=== PATIENT | male | born 1940 | race Caucasian/White ===

== ENCOUNTER → 2016-05-03 | Outpatient (CLI) | payer MEDICARE ==
--- NOTE | 2016-05-03 08:27 | CT ---
EXAMINATION TYPE: CT shoulder LT wo con DATE OF EXAM: 05/03/2016 8:16 AM COMPARISON: NONE HISTORY: Shoulder pain Unenhanced CT of the left shoulder with reconstruction imaging. TECHNIQUE: Unenhanced CT of the left shoulder was performed with bone and soft tissue window settings submitted in the axial coronal and sagittal planes. At a separate workstation [id number] TR imaging was ob tained. FINDINGS: I do not see evidence for fracture or dislocation. No evidence for subacromial impingement as there is a flat acromium. AC joint arthropathy with mild spurring and a vacuum changes seen. Sev ere spur formation is noted about the humeral head particularly along the lesser tuberosity. There is severe narrowing of the glenohumeral joint space. No obvious rotator cuff abnormality seen on CT. M RI is much more sensitive and specific to rotator cuff pathology. No soft tissue masses appreciated. Visualized portions of the right lung demonstrate left apical scarring. IMPRESSION: 1. 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
== END | disposition home or self-care (01) ==
LOC: RADCTMAIN 07:49
PROVIDERS: ATTEND Orthopaedic Surgery
DX: M19.012 Primary osteoarthritis, left shoulder (principal)

== ENCOUNTER 2017-10-14 21:21 | Inpatient (IN) | payer MEDICARE ==
[2017-10-14] MEDS ORDERED: SODIUM CHLORIDE 0.9% 1,000 ML IV STA (21:44)
[2017-10-14 21:51] LABS: Basophils % (A) 0 %; Eosinophils # (A) 0.3 k/uL (0-0.7); Eosinophils % (A) 3 %; HCT 38.9 % (39.0-53.0); HGB 13.2 gm/dL (13.0-17.5); Lymphocytes % (A) 24 %; MCH 32.1 pg (25.0-35.0); MCHC 33.9 g/dL (31.0-37.0); MCV 94.5 fL (80.0-100.0); Mean Platelet Volume 7.1; Monocytes # (A) 0.5 k/uL (0-1.0); Monocytes % (A) 7 %; Neutrophils # (A) 5.2 k/uL (1.3-7.7); Neutrophils % (A) 62 %; Platelet Count 209 k/uL (150-450); RBC 4.12 m/uL (4.30-5.90); RDW 13.2 % (11.5-15.5); WBC 8.3 k/uL (3.8-10.6)
[2017-10-14 22:00] LABS: Partial Thromboplastin Time 25.1 sec (22.0-30.0); Prothrombin Time 10.2 sec (9.0-12.0)
[2017-10-14 22:03] LABS: Albumin 3.9 g/dL (3.5-5.0); Calcium 9.6 mg/dL (8.4-10.2); Magnesium 2.3 mg/dL (1.6-2.3); Potassium 3.6 mmol/L (3.5-5.1); Total Bilirubin 0.5 mg/dL (0.2-1.3); Total Protein 6.2 g/dL (6.3-8.2)
--- NOTE | 2017-10-14 22:07 | XR ---
EXAMINATION TYPE: XR chest 2V DATE OF EXAM: 10/14/2017 COMPARISON: 12/26/2013 HISTORY: Dysrhythmia TECHNIQUE: Frontal and lateral views of the chest are obtained. FINDINGS: There is mild coarsening of interstitial pulmonary markings. Heart size is normal. There a re sternal wires. There is no pleural effusion. Bony thorax is intact. IMPRESSION: Mild pulmonary fibrosis. No active cardiopulmonary disease. No change.
[2017-10-14 22:24] LABS: Creatine Kinase MB 3.6 ng/mL (0.0-2.4); Troponin I 0.14 ng/mL (0.000-0.034)
--- NOTE | 2017-10-14 23:04 | ED ---
Arrhythmia/Palpitations HPI - General Chief Complaint: Arrhythmia/Palpitations Stated Complaint: A FIB Time Seen by Provider: 10/14/17 21:30 Source: patient Mode of arrival: wheelchair Limitations: no limitations - History of Present Illness Initial Comments: 76 years old male comes in with a palpitation he said he has a palpitation for several hours today. He has a history of atrial fibrillation for last 10 years he has been on aliquots and he said he has been very compliant with his Alaquis. He denies any headaches no neck stiffness no shortness of breath no chest pain just palpitation or abdominal pain no frequency urgency dysuria no symptoms of TIA or CVA - Related Data Home Medications Medication Instructions Recorded Confirmed Amiodarone HCl [Cordarone] 100 mg PO DAILY@0530,1600 05/27/15 07/06/15 Ascorbic Acid [Vitamin C] 500 mg PO DAILY 05/27/15 07/06/15 Aspirin EC [Ecotrin] 81 mg PO DAILY@0530 05/27/15 07/06/15 Atorvastatin [Lipitor] 40 mg PO DAILY@159905/27/15 07/06/15 Cholecalciferol [Vitamin D3] 1,000 unit PO DAILY 05/27/15 07/06/15 Clopidogrel [Plavix] 75 mg PO DAILY@1600 05/27/15 07/06/15 Furosemide [Lasix] 20 mg PO DAILY@0530,1600 05/27/15 07/06/15 Isosorbide Mononitrate [Isosorbide 30 mg PO DAILY@1600 05/27/15 07/06/15 Mononitrate ER] Lisinopril-Hctz 20-25 mg 1 tab PO DAILY@30 05/27/15 07/06/15 [Zestoretic 20-25] Occuvite With Lutein 1 tab PO DAILY 05/27/15 07/06/15 [place] Oil 400 mg PO DAILY 05/27/15 07/06/15 amLODIPine [Norvasc] 5 mg PO DAILY@0530,1600 05/27/15 07/06/15 glyBURIDE,MICRONIZED [Glyburide 6 mg PO DAILY@0530,1600 05/27/15 07/06/15 Micronized] Allergies Allergy/AdvReac Type Severity Reaction Status Date / Time No Known Allergies Allergy Verified 10/14/17 21:29 Review of Systems ROS Statement: Those systems with pertinent positive or pertinent negative responses have been documented in the HPI. ROS Other: All systems not noted in ROS Statement are negative. Past Medical History Past Medical History: Atrial Fibrillation, Coronary Artery Disease (CAD), Eye Disorder, Hyperlipidemia, Hypertension, Myocardial Infarction ([place]) Additional Past Medical History / Comment(s): HX OF ANEMIA. , HAS SWELLING LEFT LEG., BRUISES ON HANDS., cataracts Last Myocardial Infarction Date:: JANUARY 1999 History of Any Multi-Drug Resistant Organisms: None Reported Past Surgical History: Coronary Bypass/CABG, Heart Catheterization With Stent, Tonsillectomy Additional Past Surgical History / Comment(s): CABG (1998) AND 4 STENTS SINCE . , ABDOMINAL SURGERY (THEY THOUGHT HE MIGHT HAVE CANCER BUT STATES NONE FOUND) RT EYE CATARACT REMOVED Past Anesthesia/Blood Transfusion Reactions: No Reported Reaction Date of Last Stent Placement:: 12/2013 Past Psychological History: No Psychological Hx Reported Smoking Status: Former smoker Past Alcohol Use History: None Reported Past Drug Use History: None Reported - Past Family History Mother Family Medical History: No Reported History General Exam - General Exam Comments Initial Comments: General: The patient is awake and alert, in no distress, and does not appear acutely ill. Skin: Skin is warm and dry and no rashes or lesions are noted. Eye: Pupils are equal, round and reactive to light, extra-ocular movements are intact; there is normal conjunctiva bilaterally. Ears, nose, mouth and throat: There are moist mucous membranes and no oral lesions. Neck: The neck is supple, there is no tenderness or JVD. Cardiovascular: Noticed atrial fibrillation Respiratory: To auscultation bilateral, no wheezing no rhonchi no distress respiratory jones noticed Gastrointestinal: Soft, non-distended, non-tender abdomen without masses or organomegaly noted. There is no rebound or guarding present. Bowel sounds are unremarkable. Back: There is no tenderness to palpation in the midline. There is no obvious deformity. Musculoskeletal: Normal ROM, no tenderness, There is no pedal edema. There is no calf tenderness or swelling. No cords were appreciated. Neurological: CN II-XII intact, Cranial nerves III through XII are intact. There are no obvious motor or sensory deficits. Coordination appears grossly intact. Speech is normal. Psychiatric: Cooperative, appropriate mood & affect, normal judgment. Limitations: no limitations Course Vital Signs 10/14/17 10/14/17 10/14/17 21:27 21:43 22:10 Temperature 97.9 F Pulse Rate 122 H 93 100 Respiratory 18 16 18 Rate Blood Pressure 102/69 124/59 118/82 O2 Sat by Pulse 98 98 98 Oximetry 10/14/17 23:13 Temperature Pulse Rate 91 Respiratory 16 Rate Blood Pressure 102/62 O2 Sat by Pulse 98 Oximetry (Reassessment noticed CBC, INR are unremarkable creatinine is 1.60 troponin is 0.140 chest x-rays unremarkable him a chest x-rays unremarkable considering patient has a history of firm CABG and atrial fibrillation and his age now ER to be admitted under Dr. Grigsby service and cardiology consult was discussed with the patient and Dr. Grigsby both agree with my plan. During his stay in the ER his heart rate stayed around 100 without any intervention. EKG Findings - EKG Comments: EKG Findings:: EKG is atrial fibrillation with rapid ventricular response heart rate is 150 QRS duration is 148 QT/QTC 328/433 noticed left bundle branch block and right axis deviation Medical Decision Making - Lab Data Result diagrams: 10/14/17 21:38 10/14/17 21:38 Lab Results 10/14/17 10/14/17 10/14/17 Range/Units 21:38 21:38 21:38 WBC 8.3 (3.8-10.6) k/uL RBC 4.12 L (4.30-5.90) m/uL Hgb 13.2 (13.0-17.5) gm/dL Hct 38.9 L (39.0-53.0) % MCV 94.5 (80.0-100.0) fL MCH 32.1 (25.0-35.0) pg MCHC 33.9 (31.0-37.0) g/dL RDW 13.2 (11.5-15.5) % Plt Count 209 (150-450) k/uL Neutrophils % 62 % Lymphocytes % 24 % Monocytes % 7 % Eosinophils % 3 % Basophils % 0 % Neutrophils # 5.2 (1.3-7.7) k/uL Lymphocytes # 2.0 (1.0-4.8) k/uL Monocytes # 0.5 (0-1.0) k/uL Eosinophils # 0.3 (0-0.7) k/uL Basophils # 0.0 (0-0.2) k/uL PT (9.0-12.0) sec INR (<1.2) APTT (22.0-30.0) sec Sodium 140 (137-145) mmol/L Potassium 3.6 (3.5-5.1) mmol/L Chloride 107 (98-107) mmol/L Carbon Dioxide 26 (22-30) mmol/L Anion Gap 7 mmol/L BUN 34 H (9-20) mg/dL Creatinine 1.60 H (0.66-1.25) mg/dL Est GFR (CKD-EPI)AfAm 47 (>60 ml/min/1.73 sqM) Est GFR (CKD-EPI)NonAf 41 (>60 ml/min/1.73 sqM) Glucose 103 H (74-99) mg/dL Calcium 9.6 (8.4-10.2) mg/dL Magnesium 2.3 (1.6-2.3) mg/dL Total Bilirubin 0.5 (0.2-1.3) mg/dL AST 40 (17-59) U/L ALT 47 (21-72) U/L Alkaline Phosphatase 46 (38-126) U/L Total Creatine Kinase 269 H (55-170) U/L CK-MB (CK-2) 3.6 H* (0.0-2.4) ng/mL CK-MB (CK-2) Rel Index 1.3 Troponin I 0.140 H* (0.000-0.034) ng/mL Total Protein 6.2 L (6.3-8.2) g/dL Albumin 3.9 (3.5-5.0) g/dL 10/14/17 Range/Units 21:38 WBC (3.8-10.6) k/uL RBC (4.30-5.90) m/uL Hgb (13.0-17.5) gm/dL Hct (39.0-53.0) % MCV (80.0-100.0) fL MCH (25.0-35.0) pg MCHC (31.0-37.0) g/dL RDW (11.5-15.5) % Plt Count (150-450) k/uL Neutrophils % % Lymphocytes % % Monocytes % % Eosinophils % % Basophils % % Neutrophils # (1.3-7.7) k/uL Lymphocytes # (1.0-4.8) k/uL Monocytes # (0-1.0) k/uL Eosinophils # (0-0.7) k/uL Basophils # (0-0.2) k/uL PT 10.2 (9.0-12.0) sec INR 1.0 (<1.2) APTT 25.1 (22.0-30.0) sec Sodium (137-145) mmol/L Potassium (3.5-5.1) mmol/L Chloride (98-107) mmol/L Carbon Dioxide (22-30) mmol/L Anion Gap mmol/L BUN (9-20) mg/dL Creatinine (0.66-1.25) mg/dL Est GFR (CKD-EPI)AfAm (>60 ml/min/1.73 sqM) Est GFR (CKD-EPI)NonAf (>60 ml/min/1.73 sqM) Glucose (74-99) mg/dL Calcium (8.4-10.2) mg/dL Magnesium (1.6-2.3) mg/dL Total Bilirubin (0.2-1.3) mg/dL AST (17-59) U/L ALT (21-72) U/L Alkaline Phosphatase (38-126) U/L Total Creatine Kinase (55-170) U/L CK-MB (CK-2) (0.0-2.4) ng/mL CK-MB (CK-2) Rel Index Troponin I (0.000-0.034) ng/mL Total Protein (6.3-8.2) g/dL Albumin (3.5-5.0) g/dL Critical Care Time Total Critical Care Time: 30 Critical Care Time: Patient's initial pulse rate was 122, by the time I see him and was 98 and EKG it was 105, CBC, INR are normal creatinine is 1.60 his troponin is elevated 0.140 and chest x-rays normal and centering his atrial fibrillation with RVR initially admitted. His troponin is elevated as well he would need to see manager dialysis tomorrow he is not a candidate for any heparinization since he is on aliquots will admit him under acute coronary syndrome and now she feels needs any calcium channel blockers or beta blockers to control his rate is rate has been below 100 most the time Disposition Clinical Impression: Atrial fibrillation with RVR, Elevated troponin Disposition: ADMITTED IP TO THIS HOSP Condition: Good Referrals: Linda Ramos MD [Primary Care Provider] - 1-2 days
[2017-10-14] MEDS ORDERED: MORPHINE SULFATE 2 MG/ML SYRINGE IVP PRN (23:18)
[2017-10-14] MEDS ORDERED: ASPIRIN 81 MG PO STA (23:18)
[2017-10-14] MEDS ORDERED: NITROGLYCERIN SL TABS 0.4 MG TAB SUBLINGUAL PRN (23:18)
[2017-10-15] MEDS ORDERED: ALPRAZolam 0.25 MG TAB PO PRN (00:01)
[2017-10-15] MEDS ORDERED: ACETAMINOPHEN TAB 500 MG TAB PO PRN (00:02)
[2017-10-15 00:55] LABS: Cholesterol 122 mg/dL (<200); HDL Cholesterol 54 mg/dL (40-60); LDL Cholesterol,Calculated 53 mg/dL (0-99); Triglycerides 73 mg/dL (<150)
[2017-10-15 01:15] LABS: Glucose,Whole Blood 89 mg/dL (75-99)
--- NOTE | 2017-10-15 03:47 | HP ---
HISTORY AND PHYSICAL DATE OF SERVICE: 10/14/2017 CHIEF COMPLAINT: Palpitations. HISTORY OF PRESENT ILLNESS: This 76-year-old gentleman with a past medical history of multiple medical problems including CAD, CABG, history of atrial fibrillation, hypertension, hyperlipidemia, myocardial infarction, history of CAD/CABG/stent being followed by Dr. Linda Ramos and Dr. Sheldon Smith in the outpatient setting was noted to have palpitations today. He was measuring the heart rate which was going fast and slow which lasted for several hours. The patient came to [facility] and admitted for further evaluation and treatment. EKG showed atrial fibrillation with fast ventricular rate. The troponin is also found to be elevated at 0.140. The patient was admitted for further evaluation and treatment. There is no history of headache, loss of consciousness, seizures. No history of chest pain at this time. PAST MEDICAL HISTORY: History of CAD, CABG, atrial fibrillation, hypertension, hyperlipidemia, history of myocardial infarction, history of anemia, swelling of the legs, CAD, CABG, stent, history of nicotine dependence. MEDICATIONS: Home medications are reviewed and include: 1. Nitrostat 0.4 mg p.r.n. 2. Xanax 0.5 t.i.d. p.r.n. 3. Glyburide 6 mg daily. 4. Norvasc 5 mg daily. 5. Zestoretic 1 tablet p.o. daily. 6. Imdur ER 30 mg b.i.d. 7. Lasix 20 mg p.o. daily. 8. Lipitor 40 mg daily. 9. Eliquis 2.5 mg b.i.d. ALLERGIES: None. FAMILY HISTORY: No history of heart disease or strokes in family. SOCIAL HISTORY: Previous history of smoking. No history of alcohol intake. REVIEW OF SYSTEMS: ENT: Diminished vision and diminished hearing. CARDIOVASCULAR: As mentioned earlier. RESPIRATORY: As mentioned earlier. GI: No nausea or vomiting. : No dysuria or hematuria. NERVOUS SYSTEM: No numbness or weakness. ALLERGY/IMMUNOLOGY: No asthma or hayfever. MUSCULOSKELETAL: As mentioned earlier. ENDOCRINE: As mentioned earlier. CONSTITUTIONAL: As mentioned earlier. HEMATOLOGY/ONCOLOGY: No history of anemia. DERMATOLOGY: Negative. RHEUMATOLOGY: Negative. PSYCHIATRY: As mentioned earlier. PHYSICAL EXAM: GENERAL: The patient is alert and oriented x3. VITAL SIGNS: Pulse is 91, irregular, blood pressure is 180/62, respirations 16, temp is normal. Pulse ox 98% on 2 L. HEENT: Conjunctivae normal. Oral mucosa moist. NECK: No jugular venous distention. No carotid bruit. No lymph node enlargement. CARDIOVASCULAR SYSTEM: S1, S2 muffled. No S3, no S4. RESPIRATORY: Breath sounds diminished in the bases. A few scattered rhonchi. No crackles. ABDOMEN: Soft, nontender. No mass palpable. LEGS: No edema. No swelling. NERVOUS SYSTEM: Higher functions as mentioned earlier. Moves all 4 limbs. No focal motor or sensory deficits. LYMPHATICS: No lymph nodes palpable in the neck, axilla and groin. SKIN: No ulcer, rash or bleeding. LABS: WBC 8.2, hemoglobin 13.2, sodium 140, potassium 3.8, creatinine is 1.6 and CK is 269. Troponin 0.140. ASSESSMENT: 1. Atrial fibrillation with fast ventricular rate. 2. Troponin 0.140 to rule out acute non ST elevation myocardial infarction. 3. Creatinine 1.60, possibly mild acute renal failure. 4. History of coronary artery disease, coronary artery bypass grafting, stent. 5. History of hypertension. 6. Hyperlipidemia. 7. History of anemia. 8. Remote history of nicotine dependence. RECOMMENDATIONS AND DISCUSSION: In this 76-year-old gentleman who presented with multiple complex medical issues, we will monitor the patient closely. Continue the current medications, management and symptomatic treatment. Otherwise, at this time, I recommend rule out myocardial infarction. Continue with antiplatelet agents and closely follow. Resume the home medications. Guarded prognosis because of multiple complex medical issues. Further recommendations to follow. Copy of dictation being forwarded to Dr. Linda Ramos who is the primary physician. Symptomatic treatment for the pain. MMODL / IJN: [id number] /
[2017-10-15 04:32] LABS: Creatine Kinase MB 3.5 ng/mL (0.0-2.4); Troponin I 0.274 ng/mL (0.000-0.034)
[2017-10-15] MEDS ORDERED: glipiZIDE 5 MG TAB PO SCH (05:30)
[2017-10-15] MEDS ORDERED: LISINOPRIL-HCTZ 20-25 MG 1 EACH TAB PO SCH (05:30)
[2017-10-15] MEDS ORDERED: AMIODARONE 100 MG TAB PO SCH (05:30)
[2017-10-15] MEDS ORDERED: FUROSEMIDE 20 MG TAB PO SCH (05:30)
[2017-10-15] MEDS ORDERED: amLODIPine 5 MG TAB PO SCH (05:30)
[2017-10-15 06:12] VITALS: TEMP 96.9
[2017-10-15] MEDS ORDERED: PANTOPRAZOLE 40 MG TABLET PO SCH (07:30)
[2017-10-15 08:25] LABS: Glucose,Whole Blood 108 mg/dL (75-99)
[2017-10-15 08:27] VITALS: BMI 26.7
[2017-10-15] MEDS ORDERED: ASCORBIC ACID 500 MG TAB PO SCH (09:00)
[2017-10-15] MEDS ORDERED: ASPIRIN 325 MG TAB PO SCH (09:00)
[2017-10-15] MEDS ORDERED: METOPROLOL TARTRATE 12.5 MG TAB PO SCH (09:00)
[2017-10-15] MEDS ORDERED: SALMON OIL PO SCH (09:00)
[2017-10-15] MEDS ORDERED: CHOLECALCIFEROL 1,000 UNIT TAB PO SCH (09:00)
[2017-10-15 10:42] LABS: Appearance,Urine Clear (Clear); Bacteria,Urine Rare /hpf; Bilirubin,Urine Negative (Negative); Blood,Urine Negative (Negative); Color,Urine Light Yellow; Glucose,Urine (UA) Negative (Negative); Hyaline Casts,Urine 4 /lpf (0-2); Ketones,Urine Negative (Negative); Leukocyte Esterase,Urine Large (Negative); Mucus,Urine Rare /hpf; Nitrite,Urine Positive (Negative); PH, Urine 6.5 (5.0-8.0); Protein,Urine Negative (Negative); RBC,Urine 1 /hpf (0-5); Specific Gravity,Urine 1.007 (1.001-1.035); Urobilinogen,Urine <2.0 mg/dL (<2.0); WBC,Urine 18 /hpf (0-5)
[2017-10-15] MEDS ORDERED: APIXABAN 5 MG TAB PO SCH (10:45)
[2017-10-15 11:12] LABS: Creatine Kinase MB 4.9 ng/mL (0.0-2.4); Troponin I 0.181 ng/mL (0.000-0.034)
[2017-10-15] MEDS ORDERED: APIXABAN 2.5 MG TABLET PO SCH (11:46)
[2017-10-15 12:06] VITALS: BP 124/70; PULSE 82; RESP 16
--- NOTE | 2017-10-15 15:15 | DS ---
DISCHARGE SUMMARY DATE OF SERVICE: 10/15/2017. FINAL DIAGNOSES: 1. Atrial fibrillation with fast ventricular rate. The troponin 0.140, possibly acute non ST-segment elevation myocardial infarction. 2. Creatinine 1.60. 3. History of coronary artery disease, coronary artery bypass grafting, stent. HISTORY OF PRESENT ILLNESS: This 76-year-old gentleman admitted with palpitations, features of acute non-ST elevation myocardial infarction, however the patient left the hospital AGAINST MEDICAL ADVICE. The patient is not willing to wait to be seen by Cardiology. The prognosis guarded. Please refer to staff notes and other notes for further information. MMODL / IJN: [id number] /
[2017-10-15] MEDS ORDERED: ISOSORBIDE MONONITRATE ER 30 MG TAB.ER.24H PO SCH (16:00)
[2017-10-15] MEDS ORDERED: CLOPIDOGREL 75 MG TAB PO SCH (16:00)
[2017-10-15] MEDS ORDERED: ATORVASTATIN 40 MG TAB PO SCH (16:00)
[2017-10-15] MEDS ORDERED: MELATONIN 3 MG TABLET PO SCH (21:00)
== END 2017-10-15 11:55 | disposition left against medical advice (07) | DRG 281 ==
LOC: EC 21:21 → 6SEL 23:18
PROVIDERS: ADMIT Hospitalist; ATTEND Hospitalist
DX: I21.4 Non-ST elevation (NSTEMI) myocardial infarction (principal); N17.9 Acute kidney failure, unspecified; I48.91 Unspecified atrial fibrillation; I25.10 Atherosclerotic heart disease of native coronary artery without angina pectoris; I10 Essential (primary) hypertension; E78.5 Hyperlipidemia, unspecified; Z95.1 Presence of aortocoronary bypass graft; I25.2 Old myocardial infarction; Z95.5 Presence of coronary angioplasty implant and graft; Z79.01 Long term (current) use of anticoagulants; Z79.899 Other long term (current) drug therapy; Z87.891 Personal history of nicotine dependence
CPT/HCPCS: 36415; 71046; 80053; 80061; 81001; 82550; 82553; 83735; 84484; 85025; 85610; 85730; 99285

== ENCOUNTER 2023-09-12 13:15 | Inpatient (IN) | payer MEDICARE ==
--- NOTE | 2023-09-12 13:46 | ED ---
General Adult HPI - General Chief complaint: Fall Stated complaint: Fall Time Seen by Provider: 09/12/23 13:20 Source: patient, EMS, RN notes reviewed, old records reviewed Mode of arrival: EMS Limitations: no limitations - History of Present Illness Initial comments: 82-year-old male presenting with fall. Patient is mildly confused but without complaint. He had apparently fallen at home and was last seen several hours prior to this by his daughter. The history is limited but the patient denies headache. Denies neck pain. Denies extremity pain. Denies chest or abdominal pain. No history of fever. Patient is on Eliquis. - Related Data Home Medications Medication Instructions Recorded Confirmed Atorvastatin [Lipitor] 40 mg PO DAILY 05/27/15 09/12/23 Furosemide [Lasix] 40 mg PO DAILY 05/27/15 09/12/23 Isosorbide Mononitrate [Isosorbide 30 mg PO DAILY 05/27/15 09/12/23 Mononitrate ER] Lisinopril-Hctz 20-25 mg 1 tab PO DAILY 05/27/15 09/12/23 [Zestoretic 20-25] Furosemide [Lasix] 20 mg PO HS 09/12/23 09/12/23 Metoprolol Tartrate [Lopressor] 12.5 mg PO TID 09/12/23 09/12/23 Rivaroxaban [Xarelto] 15 mg PO DAILY 09/12/23 09/12/23 glyBURIDE, MICRONIZED [Glynase] 3 mg PO DAILY 09/12/23 09/12/23 glyBURIDE,MICRONIZED [Glynase] 1.5 mg PO HS 09/12/23 09/12/23 Allergies Allergy/AdvReac Type Severity Reaction Status Date / Time No Known Allergies Allergy Verified 09/12/23 15:55 Review of Systems ROS Statement: Those systems with pertinent positive or pertinent negative responses have been documented in the HPI. ROS Other: All systems not noted in ROS Statement are negative. Past Medical History Past Medical History: Atrial Fibrillation, Coronary Artery Disease (CAD), Eye Disorder, Hyperlipidemia, Hypertension, Myocardial Infarction ([place]) Additional Past Medical History / Comment(s): HX OF ANEMIA. , HAS SWELLING LEFT LEG., BRUISES ON HANDS., cataracts Last Myocardial Infarction Date:: JANUARY 1999 History of Any Multi-Drug Resistant Organisms: None Reported Past Surgical History: Coronary Bypass/CABG, Heart Catheterization With Stent, Tonsillectomy Additional Past Surgical History / Comment(s): CABG (1998) AND 4 STENTS SINCE . , ABDOMINAL SURGERY (THEY THOUGHT HE MIGHT HAVE CANCER BUT STATES NONE FOUND) RT EYE CATARACT REMOVED Past Anesthesia/Blood Transfusion Reactions: No Reported Reaction Date of Last Stent Placement:: 12/2013 Past Psychological History: No Psychological Hx Reported Past Alcohol Use History: None Reported Past Drug Use History: None Reported - Past Family History Mother Family Medical History: No Reported History General Exam General appearance: alert, in no apparent distress Head exam: Present: atraumatic, normocephalic Eye exam: Present: normal appearance, PERRL Neck exam: Present: normal inspection. Absent: tenderness, meningismus Respiratory exam: Present: normal lung sounds bilaterally. Absent: respiratory distress, wheezes Cardiovascular Exam: Present: tachycardia, irregular rhythm GI/Abdominal exam: Present: soft. Absent: distended, tenderness, guarding Extremities exam: Present: normal inspection, normal capillary refill Neurological exam: Present: alert, oriented X3. Absent: CN II-XII intact, motor sensory deficit Skin exam: Present: warm, dry, intact. Absent: cyanosis, diaphoretic Course Vital Signs 09/12/23 09/12/23 09/12/23 13:17 13:26 16:16 Temperature 97.1 F L Pulse Rate 130 H 90 108 H Respiratory 12 16 16 Rate Blood Pressure 149/63 140/91 116/82 O2 Sat by Pulse 98 98 Oximetry Medical Decision Making - Medical Decision Making Was pt. sent in by a medical professional or institution (, PA, REFRACTORY PRODUCTS SUPERVISOR, urgent care, hospital, or fpc...) When possible be specific @ -No Did you speak to anyone other than the patient for history (EMS, parent, family, police, friend...)? What history was obtained from this source @ -No Did you review nursing and triage notes (agree or disagree)? Why? @ -I reviewed and agree with nursing and triage notes Were old charts reviewed (outside hosp., previous admission, EMS record, old EKG, old radiological studies, urgent care reports/EKG's, fpc records)? Report findings @ -No old charts were reviewed Differential Syncope: Valvular disease, hypertrophic cardiomyopathy, pulmonary embolism, tamponade, ta chycardia, bradycardia, [place], hypovolemia, hemorrhage, dissection, anemia, intracranial hemorrhage, seizure, hypoglycemia, carbon monoxide poisoning, this is not meant to be an all-inclusive list. EKG interpreted by me (3pts min.). @Atrial fibrillation with PVC rate of 91, QRS duration 159, QTc 461 negative intraventricular conduction delay X-rays interpreted by me (1pt min.). @ -X-rays are performed of the chest, and pelvis, no traumatic injury identified in the chest, pelvis x-rays concerning for right femoral neck fracture CT interpreted by me (1pt min.). @The brain, cervical spine are negative for acute findings. CT of the right hip does show a right femoral neck fracture. U/S interpreted by me (1pt. min.). @ -None done What testing was considered but not performed or refused? (CT, X-rays, U/S, labs)? Why? @ -None What meds were considered but not given or refused? Why? @ -None Did you discuss the management of the patient with other professionals (professionals i.e. , PA, REFRACTORY PRODUCTS SUPERVISOR, lab, RT, psych nurse, social welfare administrator, compliance auditor, teacher, chief financial officer, machine adjuster leader case trim)? Give summary @ -Discussed with Viv macias for [facility] and Dread per Dr. Jerez. Patient will be admitted to orthopedics with both cardiology and internal medicine on consult. Was smoking cessation discussed for >3mins.? @ -No Was critical care preformed (if so, how long)? @ -No Were there social determinants of health that impacted care today? How? (Homelessness, low income, unemployed, alcoholism, drug addiction, transportation, low edu. Level, literacy, decrease access to med. care, long term, rehab)? @ -No Was there de-escalation of care discussed even if they declined (Discuss DNR or withdrawal of care, Hospice)? DNR status @ -No What co-morbidities impacted this encounter? (DM, HTN, Smoking, COPD, CAD, Cancer, CVA, ARF, Chemo, Hep., AIDS, mental health diagnosis, sleep apnea, morbid obesity)? @Atrial fibrillation on Xarelto Was patient admitted / discharged? Hospital course, mention meds given and route, prescriptions, significant lab abnormalities, going to OR and other pertinent info. @ -82-year-old male with unwitnessed fall from home. Patient on Xarelto and therefore workup is initiated including head CT, cervical spine, chest and pelvis x-rays. Patient is found to have a right femoral neck fracture. He has additional lab abnormalities including anemia, elevated troponin at 0.8 and elevated CK. Patient is given IV fluids. He has no active chest pain denies any ACS symptoms. He will be admitted to orthopedics. His troponin level will be trended. Likely plan for operative repair of right hip. Undiagnosed new problem with uncertain prognosis? @ -No Drug Therapy requiring intensive monitoring for toxicity (Heparin, Nitro, Insulin, Cardizem)? @ -No Were any procedures done? @ -No Diagnosis/symptom? @ -Right femoral neck fracture elevated troponin, elevated CK Acute, or Chronic, or Acute on Chronic? @ -[acute Uncomplicated (without systemic symptoms) or Complicated (systemic symptoms)? @ -Default Side effects of treatment? @ -No Exacerbation, Progression, or Severe Exacerbation? @ -No Poses a threat to life or bodily function? How? (Chest pain, [place], [place], pneumonia, PE, COPD, DKA, ARF, appy, cholecystitis, CVA, Diverticulitis, Homicidal, Suicidal, threat to staff... and all critical care pts) @ moderate risk, fall, fracture, troponin elevation, ACS - Lab Data Result diagrams: 09/12/23 14:26 09/12/23 14:26 Lab Results 09/12/23 09/12/23 09/12/23 Range/Units 14:26 14:26 14:26 WBC 9.6 (3.8-10.6) k/uL RBC 3.79 L (4.30-5.90) m/uL Hgb 12.0 L (13.0-17.5) gm/dL Hct 35.9 L (39.0-53.0) % MCV 94.6 (80.0-100.0) fL MCH 31.5 (25.0-35.0) pg MCHC 33.3 (31.0-37.0) g/dL RDW 13.5 (11.5-15.5) % Plt Count 200 (150-450) k/uL MPV 8.1 Neutrophils % 89 % Lymphocytes % 5 % Monocytes % 5 % Eosinophils % 0 % Basophils % 0 % Neutrophils # 8.5 H (1.3-7.7) k/uL Lymphocytes # 0.5 L (1.0-4.8) k/uL Monocytes # 0.5 (0-1.0) k/uL Eosinophils # 0.0 (0-0.7) k/uL Basophils # 0.0 (0-0.2) k/uL Sodium 141 (137-145) mmol/L Potassium 3.1 L (3.5-5.1) mmol/L Chloride 109 H (98-107) mmol/L Carbon Dioxide 24 (22-30) mmol/L Anion Gap 8 mmol/L BUN 43 H (9-20) mg/dL Creatinine 1.21 (0.66-1.25) mg/dL Est GFR (CKD-EPI)AfAm 63 (>60 ml/min/1.73 sqM) Est GFR (CKD-EPI)NonAf 55 (>60 ml/min/1.73 sqM) Glucose 151 H (74-99) mg/dL Calcium 9.7 (8.4-10.2) mg/dL Magnesium 2.6 H (1.6-2.3) mg/dL Total Bilirubin 1.8 H (0.2-1.3) mg/dL AST 227 H (17-59) U/L ALT 74 H (4-49) U/L Alkaline Phosphatase 60 (38-126) U/L Creatine Kinase 4314 H* (55-170) U/L Troponin I 0.800 H* (0.000-0.034) ng/mL Total Protein 7.2 (6.3-8.2) g/dL Albumin 4.2 (3.5-5.0) g/dL Disposition Clinical Impression: Atrial fibrillation, Elevated CK, Femoral neck fracture Disposition: ADMITTED IP TO THIS HOSP Condition: Stable Is patient prescribed a controlled substance at d/c from ED?: No Referrals: Linda Ramos MD [Primary Care Provider] - 1-2 days Forms: Adult [facility] List, [facility] The Home Time of Disposition: 17:12
--- NOTE | 2023-09-12 15:19 | XR ---
EXAMINATION TYPE: XR chest 2V DATE OF EXAM: 09/12/2023 COMPARISON: 10/14/2017 INDICATION: Fall TECHNIQUE: Frontal and lateral views of the chest are obtained. FINDINGS: The heart size is normal. Post CABG changes are evident. Sternotomy wires are present. The pulmonary vasculature is normal. The lungs are clear. Degenerative changes are at the left shoulder. IMPRESSION: 1. No acute pulmonary process.
--- NOTE | 2023-09-12 15:26 | XR ---
EXAMINATION TYPE: XR pelvis AP view DATE OF EXAM: 09/12/2023 COMPARISON: None HISTORY: Fall TECHNIQUE: AP pelvis FINDINGS: Sacroiliac joints are normal. Symphysis pubis is normal. No pelvic fractures are identified . Femoral heads articulate with the acetabulum. Left hip appears intact. There is some lucency along the inferior right femoral neck. Some rotation may be of the femoral head . Correlate with location of the patient's pain. A right hip fracture is not excluded. Postsurgical changes are in the rectosigmoid. Vascular calcifications within the iliacs. IMPRESSION: 1. Clinical consideration for right hip fracture.
--- NOTE | 2023-09-12 15:28 | CT ---
EXAMINATION TYPE: CT brain terry littlejohn con DATE OF EXAM: 09/12/2023 COMPARISON: None HISTORY: 82-year-old male fall, weakness CT DLP: 1524.6 mGycm Automated exposure control for dose reduction was used. Technique: Examination of the head was done in axial plane without intravenous contrast. Coronal and sagittal reconstructions performed. CT of the cervical spine was obtained in axial plane without intravenous injection of contrast mater ial. Coronal and sagittal reformatted images were obtained from the axial views for evaluation of f ractures, spinal alignment and canal. FINDINGS: Head: Limited by diffuse patient motion. There is no evidence of acute intracranial hemorrhage, acute ischemic changes, mass, mass-effect, or extra-axial fluid collection. There is no effacement of cerebral sulci or basal subarachnoid cister ns. There is mild ventriculomegaly, Edmund's ratio calculated at 0.33. Atherosclerotic calcifications in th e carotid siphons. Mild volume loss overlying the bilateral cerebral convexities. There is no midline shift. Robles-white matter distinction is preserved. Moderate mucosal thickening anterior ethmoid air cells. Fluid within the right mastoid air cells. Cer umen in bilateral external auditory canals. Orbits and globes are intact. Cervical spine: No craniocervical junction abnormality, predental space widening, or prevertebral soft tissue swellin g. Prominent degenerative change at the C1 dens in relation with thickening along the transverse liga ment region. Moderate to advanced multilevel spondylotic change. Degenerative grade 1 anterolisthesis C4-C5, C6/C7, C7-T1, T1-T2, and T2-T3. Osteopenia. No acute fracture seen. Variable moderate neural foraminal stenoses throughout. Marked emphysematous change in the visualized upper lungs. Sagittal and coronal reformatted images confirm above findings. COMBINED IMPRESSION: 1. Motion limited exam. Allowing for this limitation, no definite acute intracranial abnormality seen . 2. Mild generalized cerebral atrophy. Mild ventriculomegaly likely due to central cerebral volume los s. 3. No acute fracture of the cervical spine. Moderate to advanced multilevel spondylotic change with d egenerative grade 1 anterolisthesis C4-C5 and C6-T3 levels. 4. Fluid within the right mastoid air cells. Correlate for any mastoid pain to exclude mastoiditis.
[2023-09-12 15:30] LABS: Basophils % (A) 0 %; Eosinophils % (A) 0 %; HCT 35.9 % (39.0-53.0); Lymphocytes # (A) 0.5 k/uL (1.0-4.8); Lymphocytes % (A) 5 %; MCH 31.5 pg (25.0-35.0); MCHC 33.3 g/dL (31.0-37.0); MCV 94.6 fL (80.0-100.0); Mean Platelet Volume 8.1; Monocytes # (A) 0.5 k/uL (0-1.0); Monocytes % (A) 5 %; Neutrophils # (A) 8.5 k/uL (1.3-7.7); Neutrophils % (A) 89 %; Platelet Count 200 k/uL (150-450); RBC 3.79 m/uL (4.30-5.90); RDW 13.5 % (11.5-15.5); WBC 9.6 k/uL (3.8-10.6)
[2023-09-12 16:04] LABS: ALT 74 U/L (4-49); AST 227 U/L (17-59); African American GFR (CKD) 63 (>60 ml/min/1.73 sqM); Albumin 4.2 g/dL (3.5-5.0); Alkaline Phosphatase 60 U/L (38-126); Anion Gap 8 mmol/L; Blood Urea Nitrogen 43 mg/dL (9-20); Calcium 9.7 mg/dL (8.4-10.2); Carbon Dioxide 24 mmol/L (22-30); Chloride 109 mmol/L (98-107); Glucose 151 mg/dL (74-99); Magnesium 2.6 mg/dL (1.6-2.3); Non-African American GFR(CKD) 55 (>60 ml/min/1.73 sqM); Potassium 3.1 mmol/L (3.5-5.1); Sodium 141 mmol/L (137-145); Total Bilirubin 1.8 mg/dL (0.2-1.3); Total Protein 7.2 g/dL (6.3-8.2)
--- NOTE | 2023-09-12 16:28 | CT ---
EXAMINATION TYPE: CT hip RT wo con DATE OF EXAM: 09/12/2023 COMPARISON: Radiographs 09/12/2023 HISTORY: 82-year-old male with fall, pain, FALL R/O FX TECHNIQUE: Contiguous axial scanning of the right hip without IV contrast. Coronal and sagittal recon structions performed. CT DLP: 395.7 mGycm Automated exposure control for dose reduction was used. FINDINGS: StaPle and related to prior resection and reanastomosis at the rectosigmoid junction. Prostate gland enlargement 4.7 cm wide. Prominent right posterior bladder wall diverticulum measuring 6.9 cm. There is mild degenerative spurring of the right hip. There is a impacted fracture of the right femor al neck. The superior margin of the fracture appears to be in the subcapital region. The inferior mar gin of the fracture appears to be in the mid femoral neck level. Approximately 45 degrees of inferior apex angulation. Associated soft tissue swelling and small joint effusion. Osteopenia. IMPRESSION: NONDISPLACED, IMPACTED RIGHT FEMORAL NECK FRACTURE. THE SUPERIOR MARGIN OF THE FRACTURE IS LOCATED IN THE SUBCAPITAL REGION. THE INFERIOR MARGIN OF THE FRACTURE IS AT THE MID FEMORAL NECK LEVEL. APPROXI MATELY 45 DEGREES OF INFERIOR APEX ANGULATION.
[2023-09-12 17:01] LABS: Creatine Kinase 4314 U/L (55-170)
[2023-09-12] MEDS ORDERED: HYDROmorphone 0.5 MG/0.5 ML SYRINGE IVP PRN (17:06)
[2023-09-12] MEDS ORDERED: NALOXONE 0.4 MG/ML 1 ML VIAL IV PRN (17:06)
--- NOTE | 2023-09-12 17:33 | P.HPOR ---
History of Present Illness H&P Date: 09/12/23 Chief Complaint: Right femoral neck fracture Patient is an 82-year-old male that was brought in to [facility] by EMS after being found on the ground by a neighbor at his home. upon arrival to the hospital, multiple imaging and lab tests were done. Hip CT d emonstrated a nondisplaced right femoral neck fracture. Patient's white blood cell count was noted to be elevated, his creatinine kinase and troponins were also elevated. I was contacted by the emergency room staff regarding the patient, I was able to review the images and discussed them with my attending. I was also able to evaluate the patient in the emergency room. At bedside in the emergency room patient is resting comfortably, his granddaughter is also present who is the power of channel business manager. Patient is mildly confused but answers most of my questions accurately. Patient does live alone, he has multiple neighbors that check in on him along with his granddaughter. Patient denies any pain to the right lower extremity at this time. He denies any left lower extremity pain. He denies any upper extremity pain bilaterally. He denies any new onset cervical, thoracic or lumbar pain. He denies any paresthesias of the bilateral lower extremities. He has a relatively detailed cardiac history, he does take an oral anticoagulant for chronic A-fib. Patient states he does not utilize a walker or cane for ambulation. Review of Systems Constitutional: Reports as per HPI Past Medical History Past Medical History: Atrial Fibrillation, Coronary Artery Disease (CAD), Eye Disorder, Hyperlipidemia, Hypertension, Myocardial Infarction ([place]) Additional Past Medical History / Comment(s): HX OF ANEMIA. , HAS SWELLING LEFT LEG., BRUISES ON HANDS., cataracts Last Myocardial Infarction Date:: JANUARY 1999 History of Any Multi-Drug Resistant Organisms: None Reported Past Surgical History: Coronary Bypass/CABG, Heart Catheterization With Stent, Tonsillectomy Additional Past Surgical History / Comment(s): CABG (1998) AND 4 STENTS SINCE . , ABDOMINAL SURGERY (THEY THOUGHT HE MIGHT HAVE CANCER BUT STATES NONE FOUND) RT EYE CATARACT REMOVED Past Anesthesia/Blood Transfusion Reactions: No Reported Reaction Date of Last Stent Placement:: 12/2013 Past Psychological History: No Psychological Hx Reported Past Alcohol Use History: None Reported Past Drug Use History: None Reported - Past Family History Mother Family Medical History: No Reported History Medications and Allergies Home Medications Medication Instructions Recorded Confirmed Type Atorvastatin [Lipitor] 40 mg PO DAILY 05/27/15 09/12/23 History Furosemide [Lasix] 40 mg PO DAILY 05/27/15 09/12/23 History Isosorbide Mononitrate [Isosorbide 30 mg PO DAILY 05/27/15 09/12/23 History Mononitrate ER] Lisinopril-Hctz 20-25 mg 1 tab PO DAILY 05/27/15 09/12/23 History [Zestoretic 20-25] Furosemide [Lasix] 20 mg PO HS 09/12/23 09/12/23 History Metoprolol Tartrate [Lopressor] 12.5 mg PO TID 09/12/23 09/12/23 History Rivaroxaban [Xarelto] 15 mg PO DAILY 09/12/23 09/12/23 History glyBURIDE, MICRONIZED [Glynase] 3 mg PO DAILY 09/12/23 09/12/23 History glyBURIDE,MICRONIZED [Glynase] 1.5 mg PO HS 09/12/23 09/12/23 History Allergies Allergy/AdvReac Type Severity Reaction Status Date / Time No Known Allergies Allergy Verified 09/12/23 15:55 Physical Examination Right lower extremity: No open lesions, sores or areas of erythema are noted near the proximal and lateral thigh. Patient does have coban rap present to the bilateral lower extremities from just below the knee to the foot/ankle. No significant malalignment is noted to the right lower extremity when compared to the contralateral side Logroll maneuver reproduces no pain. Patient is nontender with palpation to the proximal thigh, knee, lower leg, foot or ankle Plantarflexion, dorsiflexion, EHL, FHL are intact. Extension and flexion are intact at the knee. Patient is able to flex the hip with minimal discomfort Calf is soft, no tenderness with palpation Skin is warm to touch Results - Labs Labs: Abnormal Lab Results - Last 24 Hours (Table) 09/12/23 09/12/23 09/12/23 Range/Units 14:26 14:26 14:26 RBC 3.79 L (4.30-5.90) m/uL Hgb 12.0 L (13.0-17.5) gm/dL Hct 35.9 L (39.0-53.0) % Neutrophils # 8.5 H (1.3-7.7) k/uL Lymphocytes # 0.5 L (1.0-4.8) k/uL Potassium 3.1 L (3.5-5.1) mmol/L Chloride 109 H (98-107) mmol/L BUN 43 H (9-20) mg/dL Glucose 151 H (74-99) mg/dL Magnesium 2.6 H (1.6-2.3) mg/dL Total Bilirubin 1.8 H (0.2-1.3) mg/dL AST 227 H (17-59) U/L ALT 74 H (4-49) U/L Creatine Kinase 4314 H* (55-170) U/L Troponin I 0.800 H* (0.000-0.034) ng/mL H & H 09/12/23 Range/Units 14:26 Hgb 12.0 L (13.0-17.5) gm/dL Hct 35.9 L (39.0-53.0) % Result Diagrams: 09/12/23 14:26 09/12/23 14:26 - Diagnostic results Hip x-ray: report reviewed, image reviewed Hip CT: report reviewed, image reviewed Assessment and Plan Assessment: Right nondisplaced femoral neck fracture Status post unwitnessed fall from standing Bilateral lower extremity chronic wounds Other medical comorbidities Plan: Imaging: Pelvis x-ray images and report along with hip CT images and report were reviewed. Images do demonstrate a nondisplaced mildly impacted right femoral neck fracture Plan: I was able to discuss the case, this to include physical exam findings and imaging studies my attending Dr. Blanco. Due to trauma protocol patient was admitted under orthopedic service. Plan for transfer primary admission to internal medicine after 24 hours. I was able to discuss the treatment options with both the patient and granddaughter today at bedside. We are considering a right hip hemiarthroplasty versus closed reduction with percutaneous pinning of the right hip. Surgery is scheduled for 09/13/2023. Discussed with the granddaughter will be consent form to be signed prior to the surgery. Surgery will be later in the afternoon. Risk and benefits of the procedure were discussed with the patient and granddaughter, this to include blood loss, neurovascular injury, infection, development of blood clots, pain and stiffness, need for subsequent surgery, and adequate healing of bone. Both are in good understanding would like to proceed with surgery. Consults have been placed for both internal medicine and cardiology, their recommendations are appreciated Nonweightbearing right lower extremity at this time Urinary catheter placement GI and DVT prophylaxis, hold oral anticoagulants at this time due to pending surgery Pain control, try to avoid high-dose narcotics due to patient's age N.p.o. after midnight PT/OT after surgery Discharge planning: Discussed with the granddaughter patient would likely need subacute rehab after hospital stay Further recommendations to follow Time with Patient: Less than 30
[2023-09-12] MEDS: SODIUM CHLORIDE 0.9% 1,000 ML IV SCH (17:46)
[2023-09-12] MEDS: POTASSIUM CHLORIDE 10 MEQ in WATER FOR INJECTION 1 100ML.BAG IVPB SCH (19:00)
[2023-09-13 07:59] LABS: African American GFR (CKD) 68 (>60 ml/min/1.73 sqM); Anion Gap 3 mmol/L; Blood Urea Nitrogen 49 mg/dL (9-20); Calcium 9.2 mg/dL (8.4-10.2); Carbon Dioxide 25 mmol/L (22-30); Chloride 115 mmol/L (98-107); Glucose 135 mg/dL (74-99); Non-African American GFR(CKD) 59 (>60 ml/min/1.73 sqM); Potassium 3.6 mmol/L (3.5-5.1); Sodium 143 mmol/L (137-145)
[2023-09-13] MEDS: METOPROLOL TARTRATE 12.5 MG TAB PO SCH (09:55)
[2023-09-13] MEDS: FUROSEMIDE 40 MG TAB PO SCH (09:55)
[2023-09-13] MEDS: ATORVASTATIN 40 MG TAB PO SCH (09:55)
[2023-09-13] MEDS: LISINOPRIL-HCTZ 20-25 MG 1 EACH TAB PO SCH (09:55)
[2023-09-13] MEDS: ISOSORBIDE MONONITRATE ER 30 MG TAB.ER.24H PO SCH (09:55)
--- NOTE | 2023-09-13 12:03 | P.CRDCN ---
History of Present Illness History of present illness: HISTORY OF PRESENT ILLNESS: This is a 82-year-old male with a past medical history significant for atrial fibrillation, hypertension, hyperlipidemia, diabetes, and coronary artery disease with previous CABG and subsequent stenting. Patient follows in the office with Dr. Smith. We have been asked to see the patient in consultation for surgical clearance. Patient examined at the bedside in the emergency room. Patient presented to the hospital after he sustained a mechanical fall yesterday at home. Patient states he was laying on the ground for approximately 45 minutes to 1 hour before he was able to get up. Patient was found to have a right nondisplaced femoral neck fracture. He is scheduled to undergo surgical intervention this afternoon. Patient currently denies any chest pain or pressure. He denies any shortness of breath. Vital signs are stable. DIAGNOSTICS: - EKG reveals atrial fibrillation with PVCs. Bedside telemetry reveals sinus mechanism with PACs. - Chest xray negative for acute process - Laboratory data: WBC 9.6. Hemoglobin 12.0. Platelet count 200. Sodium 143. Potassium 3.6. BUN 49. Creatinine 1.14. Magnesium 2.6. Bilirubin 1.8. AST 227. ALT 74. Creatinine kinase 4314. Troponin 0.800. 0.797. 0.807. - Current home cardiac medications include metoprolol tartrate 12.5 mg 3 times daily, Xarelto 15 mg daily, lisinoprilhydrochlorothiazide 20-25 mg daily, Lasix 40 mg in the morning and 20 mg at night, Lipitor 40 mg daily. - Most recent echocardiogram obtained in the office in February 2022 revealed EF 40%, mild aortic stenosis, mild MR, moderate MS - Cardiac catheterization history: 2013 with stenting of the council RCA REVIEW OF SYSTEMS: At the time of my exam: CONSTITUTIONAL: Denies fever or chills. HEENT: Denies blurred vision, vision changes, or eye pain. Denies hemoptysis CARDIOVASCULAR: Denies chest pain. Denies orthopnea. Denies PND. Denies palpitations RESPIRATORY: Denies shortness of breath. GASTROINTESTINAL: Denies abdominal pain. Denies nausea or vomiting. HEMATOLOGIC: Denies bleeding disorders. GENITOURINARY: Denies any blood in urine. SKIN: Denies pruitis. Denies rash. PHYSICAL EXAM: VITAL SIGNS: Reviewed. GENERAL: Well-developed in no acute distress. HEENT: Head is normocephalic. Pupils are equal, round. Sclerae anicteric. Mucous membranes of the mouth are moist. Neck supple. No JVD or thyromegaly LUNGS: Respirations even and unlabored. Lungs essentially clear to auscultation bilaterally. HEART: Regular rate and rhythm. S1 and S2 heard. Systolic murmur noted. ABDOMEN: Soft. Nondistended. Nontender. EXTREMITIES: Normal range of motion. No clubbing or cyanosis. Peripheral pulses intact. Skin is noted to bilateral lower extremities. NEUROLOGIC: Awake and alert. Oriented x 3. ASSESSMENT: S/p mechanical fall with no evidence of syncope Right nondisplaced femoral neck fracture Elevated troponins, flat, acute myocardial injury without ischemia, ACS ruled out Elevated creatinine kinase History of coronary artery disease with previous CABG in 1987 with subsequent stenting, most recently in 2013 Ischemic cardiomyopathy, ejection fraction 40% in 2021 Paroxysmal atrial fibrillation Bilateral lower extremity chronic wounds Hypertension Hyperlipidemia Diabetes PLAN: Obtain 2D echo to assess cardiac structure and function Resume home cardiac medications Hold Xarelto as patient is scheduled for surgical intervention this afternoon. Resume postoperatively when cleared by orthopedics. Patient is at high risk for intraoperative cardiovascular complications. However there are no absolute contraindications for patient to proceed from a cardiology perspective. Further recommendations pending patient course Nurse practitioner note has been reviewed by physician. Signing provider agrees with the documented findings, assessment, and plan of care documented by ELECTRONEURODIAGNOSTIC TECHNICIAN as a scribe. Past Medical History Past Medical History: Atrial Fibrillation, Coronary Artery Disease (CAD), Eye Disorder, Hyperlipidemia, Hypertension, Myocardial Infarction (DC) Additional Past Medical History / Comment(s): HX OF ANEMIA. , HAS SWELLING LEFT LEG., BRUISES ON HANDS., cataracts Last Myocardial Infarction Date:: JANUARY 1999 History of Any Multi-Drug Resistant Organisms: None Reported Past Surgical History: Coronary Bypass/CABG, Heart Catheterization With Stent, Tonsillectomy Additional Past Surgical History / Comment(s): CABG (1998) AND 4 STENTS SINCE . , ABDOMINAL SURGERY (THEY THOUGHT HE MIGHT HAVE CANCER BUT STATES NONE FOUND) RT EYE CATARACT REMOVED Past Anesthesia/Blood Transfusion Reactions: No Reported Reaction Date of Last Stent Placement:: 12/2013 Past Psychological History: No Psychological Hx Reported Past Alcohol Use History: None Reported Past Drug Use History: None Reported - Past Family History Mother Family Medical History: No Reported History Medications and Allergies Home Medications Medication Instructions Recorded Confirmed Type Atorvastatin [Lipitor] 40 mg PO DAILY 05/27/15 09/12/23 History Furosemide [Lasix] 40 mg PO DAILY 05/27/15 09/12/23 History Isosorbide Mononitrate [Isosorbide 30 mg PO DAILY 05/27/15 09/12/23 History Mononitrate ER] Lisinopril-Hctz 20-25 mg 1 tab PO DAILY 05/27/15 09/12/23 History [Zestoretic 20-25] Furosemide [Lasix] 20 mg PO HS 09/12/23 09/12/23 History Metoprolol Tartrate [Lopressor] 12.5 mg PO TID 09/12/23 09/12/23 History Rivaroxaban [Xarelto] 15 mg PO DAILY 09/12/23 09/12/23 History glyBURIDE, MICRONIZED [Glynase] 3 mg PO DAILY 09/12/23 09/12/23 History glyBURIDE,MICRONIZED [Glynase] 1.5 mg PO HS 09/12/23 09/12/23 History Allergies Allergy/AdvReac Type Severity Reaction Status Date / Time No Known Allergies Allergy Verified 09/12/23 15:55 Physical Exam Vitals: Vital Signs Temp Pulse Pulse Resp BP Pulse Ox 09/13/23 11:00 80 16 106/80 95 09/13/23 08:00 89 16 09/13/23 06:00 75 18 123/59 99 09/13/23 04:00 86 18 115/59 97 09/13/23 03:00 81 18 117/64 96 09/13/23 01:00 89 18 111/69 97 09/12/23 22:21 87 16 107/47 99 09/12/23 21:25 95 18 95/48 95 09/12/23 16:16 108 H 16 116/82 98 09/12/23 13:26 90 16 140/91 09/12/23 13:17 97.1 F L 130 H 12 149/63 98 Intake and Output 09/12/23 09/13/23 09/13/23 22:59 06:59 14:59 Output Total 700 800 Balance -700 -800 Output: Urine 700 800 Uretheral (Yeager) 700 800 Other: Voiding Method Indwelling Catheter Results 09/12/23 14:26 09/13/23 07:31 Cardiac Enzymes 09/12/23 09/12/23 09/12/23 Range/Units 14:26 14:26 17:48 AST 227 H (17-59) U/L Troponin I 0.800 H* 0.797 H* (0.000-0.034) ng/mL 09/12/23 Range/Units 21:04 AST (17-59) U/L Troponin I 0.807 H* (0.000-0.034) ng/mL CBC 09/12/23 Range/Units 14:26 WBC 9.6 (3.8-10.6) k/uL RBC 3.79 L (4.30-5.90) m/uL Hgb 12.0 L (13.0-17.5) gm/dL Hct 35.9 L (39.0-53.0) % Plt Count 200 (150-450) k/uL Comprehensive Metabolic Panel 09/12/23 09/13/23 Range/Units 14:26 07:31 Sodium 141 143 (137-145) mmol/L Potassium 3.1 L 3.6 (3.5-5.1) mmol/L Chloride 109 H 115 H (98-107) mmol/L Carbon Dioxide 24 25 (22-30) mmol/L BUN 43 H 49 H (9-20) mg/dL Creatinine 1.21 1.14 (0.66-1.25) mg/dL Glucose 151 H 135 H (74-99) mg/dL Calcium 9.7 9.2 (8.4-10.2) mg/dL AST 227 H (17-59) U/L ALT 74 H (4-49) U/L Alkaline Phosphatase 60 (38-126) U/L Total Protein 7.2 (6.3-8.2) g/dL Albumin 4.2 (3.5-5.0) g/dL Current Medications Generic Name Dose Route Start Last Admin Trade Name Freq PRN Reason Stop Dose Admin Acetaminophen 650 mg 09/12/23 17:06 Acetaminophen Tab 325 Mg Tab PO Q6HR PRN Mild Pain or Fever > 100.5 Atorvastatin Calcium 40 mg 09/13/23 09:00 09/13/23 09:55 Atorvastatin 40 Mg Tab PO Not Given DAILY NAYA Furosemide 40 mg 09/13/23 09:00 09/13/23 09:55 Furosemide 40 Mg Tab PO Not Given DAILY [facility] Furosemide 20 mg 09/13/23 21:00 Furosemide 20 Mg Tab PO HS NAYA Lisinopril/HCTZ 1 each 09/13/23 09:00 09/13/23 09:55 Lisinopril-Hctz 20-25 Mg 1 Each Tab PO Not Given DAILY NAYA Hydromorphone HCl 0.5 mg 09/12/23 17:06 Hydromorphone 0.5 Mg/0.5 Ml Syringe IVP Q3HR PRN Moderate Pain (Scale 4 to 6) Sodium Chloride 1,000 mls @ 100 mls/hr 09/12/23 17:15 09/13/23 03:58 Saline 0.9% IV 100 mls/hr .Q10H NAYA Administration Isosorbide Mononitrate 30 mg 09/13/23 09:00 09/13/23 09:55 Isosorbide Mononitrate Er 30 Mg Tab.Er.24h PO Not Given DAILY [facility] Metoprolol Tartrate 12.5 mg 09/13/23 09:00 09/13/23 09:55 Metoprolol Tartrate 12.5 Mg Tab PO Not Given TID [facility] Naloxone HCl 0.2 mg 09/12/23 17:06 Naloxone 0.4 Mg/Ml 1 Ml Vial IV Q2M PRN Opioid Reversal Intake and Output 09/12/23 09/13/23 09/13/23 22:59 06:59 14:59 Output Total 700 800 Balance -700 -800 Output: Urine 700 800 Uretheral (Yeager) 700 800 Other: Voiding Method Indwelling Catheter 09/12/23 14:26 09/13/23 07:31
--- NOTE | 2023-09-13 12:29 | P.CONS ---
History of Present Illness - Reason for Consult Preoperative clearance - History of Present Illness 82-year-old male had a mechanical fall and had a nondisplaced right femoral neck fracture. Patient is not having any significant pain patient has multiple medical issues including atrial fibrillation congestive heart failure systolic function of 40% hypertension and coronary artery disease. Patient has mild elevated troponins up 0.8-0.79 0.80 mostly flat patient does not have any chest pain echocardiogram was ordered cardiology evaluated for clearance. Patient is high operative risk for surgery as this is an urgent surgery patient still should pursue surgery. Same thing was explained to the patient explained and patient wanted to go get the surgery done as soon as possible. Patient is presently hypovolemic and does have acute renal failure patient creatinine is 1.9 with baseline creatinine is around 0.9 and patient is also hypotensive because of which antihypertensive medications are being held. REVIEW OF SYSTEMS: All other systems are negative except those mentioned in the HPI PHYSICAL EXAMINATION: GENERAL: The patient is alert and oriented x3, not in any acute distress. Well developed, well nourished. HEENT: Pupils are round and equally reacting to light. EOMI. No scleral icterus. No conjunctival pallor. Normocephalic, atraumatic. No pharyngeal erythema. No thyromegaly. CARDIOVASCULAR: S1 and S2 present. No murmurs, rubs, or gallops. PULMONARY: Chest is clear to auscultation, no wheezing or crackles. ABDOMEN: Soft, nontender, nondistended, normoactive bowel sounds. No palpable organomegaly. MUSCULOSKELETAL: Deferred to orthopedic surgery. EXTREMITIES: No cyanosis, clubbing, or pedal edema. NEUROLOGICAL: Gross neurological examination did not reveal any focal deficits. SKIN: No rashes. Assessment and plan -Preoperative clearance for right hip fracture: Patient is high operative risk for surgery since it is urgent surgery and it improves his functionality significantly, and patient is willing to proceed with surgery patient should undergo surgery. Echocardiogram is being obtained -Congestive heart failure chronic systolic function and diastolic function without any acute exacerbation patient is in fact hypovolemic patient is on IV fluids which will be continued patient was started on of oral Lasix which will be discontinued patient may end up getting volume overloaded because of the IV fluids he is going to receive in the OR, will closely monitor for heart failure exacerbation patient will be resumed on oral Lasix from tomorrow with close cas toring for heart failure exacerbation -Troponin elevation probably chronic and secondary to acute renal failure and congestive heart failure -Acute renal failure prerenal azotemia secondary to hypovolemia: IV fluids hold off on diuretics -Hypertension patient is hypotensive patient blood pressure is expected to go up and go down even more because of which we may need to continue or even fluid assisted him in the pre and perioperative. For now we will stop the antihypertensive medications -Hyperlipidemia -Hypertension -Coronary artery disease Atrial fibrillation rate controlled DVT prophylaxis: As per primary service and patient is on Xarelto for atrial fibrillation patient is presently rate controlled Xarelto can be resumed postsurgery. Past Medical History Past Medical History: Atrial Fibrillation, Coronary Artery Disease (CAD), Eye Disorder, Hyperlipidemia, Hypertension, Myocardial Infarction (MD) Additional Past Medical History / Comment(s): HX OF ANEMIA. , HAS SWELLING LEFT LEG., BRUISES ON HANDS., cataracts Last Myocardial Infarction Date:: JANUARY 1999 History of Any Multi-Drug Resistant Organisms: None Reported Past Surgical History: Coronary Bypass/CABG, Heart Catheterization With Stent, Tonsillectomy Additional Past Surgical History / Comment(s): CABG (1998) AND 4 STENTS SINCE . , ABDOMINAL SURGERY (THEY THOUGHT HE MIGHT HAVE CANCER BUT STATES NONE FOUND) RT EYE CATARACT REMOVED Past Anesthesia/Blood Transfusion Reactions: No Reported Reaction Date of Last Stent Placement:: 12/2013 Past Psychological History: No Psychological Hx Reported Past Alcohol Use History: None Reported Past Drug Use History: None Reported - Past Family History Mother Family Medical History: No Reported History Medications and Allergies Home Medications Medication Instructions Recorded Confirmed Type Atorvastatin [Lipitor] 40 mg PO DAILY 05/27/15 09/12/23 History Furosemide [Lasix] 40 mg PO DAILY 05/27/15 09/12/23 History Isosorbide Mononitrate [Isosorbide 30 mg PO DAILY 05/27/15 09/12/23 History Mononitrate ER] Lisinopril-Hctz 20-25 mg 1 tab PO DAILY 05/27/15 09/12/23 History [Zestoretic 20-25] Furosemide [Lasix] 20 mg PO HS 09/12/23 09/12/23 History Metoprolol Tartrate [Lopressor] 12.5 mg PO TID 09/12/23 09/12/23 History Rivaroxaban [Xarelto] 15 mg PO DAILY 09/12/23 09/12/23 History glyBURIDE, MICRONIZED [Glynase] 3 mg PO DAILY 09/12/23 09/12/23 History glyBURIDE,MICRONIZED [Glynase] 1.5 mg PO HS 09/12/23 09/12/23 History Allergies Allergy/AdvReac Type Severity Reaction Status Date / Time No Known Allergies Allergy Verified 09/12/23 15:55 Physical Exam Vitals: Vital Signs Temp Pulse Pulse Resp BP Pulse Ox 09/13/23 11:00 80 16 106/80 95 09/13/23 08:00 89 16 09/13/23 06:00 75 18 123/59 99 09/13/23 04:00 86 18 115/59 97 09/13/23 03:00 81 18 117/64 96 09/13/23 01:00 89 18 111/69 97 09/12/23 22:21 87 16 107/47 99 09/12/23 21:25 95 18 95/48 95 09/12/23 16:16 108 H 16 116/82 98 09/12/23 13:26 90 16 140/91 09/12/23 13:17 97.1 F L 130 H 12 149/63 98 Intake and Output 09/12/23 09/13/23 09/13/23 22:59 06:59 14:59 Output Total 700 800 Balance -700 -800 Output: Urine 700 800 Uretheral (Yeager) 700 800 Other: Voiding Method Indwelling Catheter Results CBC & Chem 7: 09/12/23 14:26 09/13/23 07:31 Labs: Abnormal Lab Results - Last 24 Hours (Table) 09/12/23 09/12/23 09/12/23 Range/Units 14:26 14:26 14:26 RBC 3.79 L (4.30-5.90) m/uL Hgb 12.0 L (13.0-17.5) gm/dL Hct 35.9 L (39.0-53.0) % Neutrophils # 8.5 H (1.3-7.7) k/uL Lymphocytes # 0.5 L (1.0-4.8) k/uL Potassium 3.1 L (3.5-5.1) mmol/L Chloride 109 H (98-107) mmol/L BUN 43 H (9-20) mg/dL Glucose 151 H (74-99) mg/dL Magnesium 2.6 H (1.6-2.3) mg/dL Total Bilirubin 1.8 H (0.2-1.3) mg/dL AST 227 H (17-59) U/L ALT 74 H (4-49) U/L Creatine Kinase 4314 H* (55-170) U/L Troponin I 0.800 H* (0.000-0.034) ng/mL 09/12/23 09/12/23 09/13/23 Range/Units 17:48 21:04 07:31 RBC (4.30-5.90) m/uL Hgb (13.0-17.5) gm/dL Hct (39.0-53.0) % Neutrophils # (1.3-7.7) k/uL Lymphocytes # (1.0-4.8) k/uL Potassium (3.5-5.1) mmol/L Chloride 115 H (98-107) mmol/L BUN 49 H (9-20) mg/dL Glucose 135 H (74-99) mg/dL Magnesium (1.6-2.3) mg/dL Total Bilirubin (0.2-1.3) mg/dL AST (17-59) U/L ALT (4-49) U/L Creatine Kinase (55-170) U/L Troponin I 0.797 H* 0.807 H* (0.000-0.034) ng/mL
[2023-09-13 13:03] LABS: Glucose,Whole Blood 125 mg/dL (70-110)
[2023-09-13] MEDS: INSULIN ASPART (NovoLOG) 100 UNIT/ML VIAL SQ SCH (13:03)
[2023-09-13] MEDS: IV FLUID CONTINUATION 1,000 ML IV ONE ×2 (15:51→18:50)
[2023-09-13 16:22] LABS: Glucose,Whole Blood 124 mg/dL (70-110)
[2023-09-13] MEDS: LACTATED RINGERS 1,000 ML BAG IV STA (16:43)
[2023-09-13] MEDS ORDERED: LIDOCAINE 1% INJ 10MG/ML (20 ML MDV) ONE (16:47)
[2023-09-13] MEDS ORDERED: PHENYLEPHRINE 10 MG/ML VIAL ONE (16:47)
[2023-09-13] MEDS ORDERED: GLYCOPYRROLATE 0.2 MG/ML 2 ML VIAL ONE (16:47)
[2023-09-13] MEDS ORDERED: fentaNYL (PF) 50 MCG/ML 2 ML AMP ONE (16:47)
[2023-09-13] MEDS ORDERED: ESMOLOL 100 MG/10 ML VIAL ONE (16:47)
[2023-09-13] MEDS ORDERED: NEOSTIGMINE 1 MG/ML 10 ML VIAL ONE (16:47)
[2023-09-13] MEDS ORDERED: ETOMIDATE 2 MG/ML 10 ML VIAL ONE (16:47)
[2023-09-13] MEDS ORDERED: ROCURONIUM 10 MG/ML (5 ML VIAL) IV ONE (16:47)
[2023-09-13] MEDS ORDERED: ePHEDrine 50 MG/ML 1 ML VIAL ONE (16:47)
[2023-09-13] MEDS: SODIUM CHLORIDE 0.9% 100 ML with ceFAZolin 2,000 MG IV ONE (17:15)
[2023-09-13] MEDS: ceFAZolin 1,000 MG in SODIUM CHLORIDE 0.9% 1,000 ML IRRIGATION ONE (17:29)
--- NOTE | 2023-09-13 17:52 | P.OP ---
Date of Procedure: 09/13/23 Preoperative Diagnosis: Right hip valgus impacted femoral neck fracture Postoperative Diagnosis: Right hip valgus impacted femoral neck fracture Procedure(s) Performed: Cannulated screw fixation of right hip valgus impacted femoral neck fracture Implants: Radha 6.5mm ASNIS cannulated screws size 90mm,90mm,95mm Anesthesia: regional Surgeon: Jonathan Blanco Bottom Man #1: Jemal De Jesus Estimated Blood Loss (ml): 15 Pathology: none sent Condition: stable Disposition: PACU Description of Procedure: This is a 82 year old male who sustained a ground level fall and was found to have a right valgus impacted femoral neck fracture and presents today for surgical intervention. Risks and benefits of surgery were discussed with the patient including bleeding, damage to surrounding tissue, infection, need for further surgery as well as risks of anesthesia including pulmonary embolism and even and the patient wished to proceed with surgical intervention. The patient was seen in the pre-operative area by myself. Consent and H&P were completed and updated. The correct extremity was marked in the pre-operative area by myself and all other questions were answered. Operative Narrative: The patient was brought to the operating room by the department of anesthesia. They were drifted off to sleep by the department of anesthesia and then transferred safely to the MOFFIT traction table. All nanette prominences were well padded and the non-operative leg was flexed and abducted and placed in a well leg sanders with the operative leg placed in a boot and hooked up to the traction arm, although no traction was applied. Pre-operative time out was performed indicating the correct patient, procedure and laterality. All in the room agreed. AP and lateral views of the hip were obtained prior to draping which confirmed a valgus impacted femoral neck which was in good alignment on both AP and lateral views, therefore decision was made to go forward with cannulated screw fixation of the femoral neck fracture. The right lower extremity was then prepped and draped in normal sterile fashion. Pre-operative antibiotics were given prior to skin incision. Under fluoroscopy, the level of the lesser trochanter was marked on the skin to serve as a guide and to represent the distal limit for screw entrance location in order to avoid a sub trochanteric stress riser. Next, a threaded tip guide pin was pierced through the lateral skin overlying the trochanteric region and appropriate trajectory along the calcar was confirmed on AP and lateral imaging which showed center placement in the A/P plane. Guide pin was inserted roughly 5mm short of subchondral bone in the femoral head. Another threaded tip guide pin was pierced through skin and placed slightly proximal and anterior to the calcar guide pin and advanced just short of the femoral head subchondral bone, placement was confirmed on AP/Lateral views. Lastly, a proximal posterior guide pin was introduced through skin and advanced just short of femoral head subchondral bone and placement was confirmed on AP/Lateral views to complete the inverted triangle configuration. AP/Lat view confirmed acceptable spread in the femoral neck with no convergence of pins appreciated. Depth gauge was then used to measure all three screw lengths which measured 90,95,90 mm. All screws were then inserted initially under power with periodic fluoroscopy shots to confirm no advancement of guidewire location. All screws were then finished with a hand screw trash collector truck driver and good screw purchase was appreciated. Final X-rays were taken and AP/Lateral views confirmed no intra-articular penetration of screw heads and good spread in the A/P plane with all screws placed proximal to level of lesser trochanter. Wounds were then irrigated with sterile saline. Skin closure was performed with a subcuticular 2-0 vicryl suture followed by rajendra. Sterile dressing was applied consisting of adaptic, 4x4s and a tegaderm dressing. The patient was then woken by the department of anesthesia and transferred to PACU in stable condition. Jemal TRAN was present for the case to assist in hardware placement and closure. Jonathan Blanco D.O. Orthopedic Hand/Upper Extremity Surgeon
[2023-09-13] MEDS ORDERED: MAGNESIUM HYDROXIDE 2,400 MG/30 ML CUP PO PRN (18:15)
[2023-09-13] MEDS ORDERED: HYDROcodone/APAP 7.5-325MG 1 EACH TAB PO PRN (18:15)
[2023-09-13] MEDS: LABETALOL SYRINGE 5 MG/ML (4 ML SYR) IVP STA (18:19)
[2023-09-13] MEDS: PHENYLEPHRINE 40 MG in SODIUM CHLORIDE 0.9% 250 ML IV SCH (18:36)
--- NOTE | 2023-09-13 18:52 | FL ---
EXAMINATION TYPE: FL guidance operating room, XR Hip Complete RT Intraoperative/procedural fluoroscop ic services were provided. Total fluoroscopy time is 30 seconds with a total of 4 submitted images to PACS. Please see the operative/procedural note for further details. DAP: [id number]
[2023-09-13] MEDS: DILTIAZEM 125 MG in SODIUM CHLORIDE 0.9% 100 ML IV SCH (18:54)
[2023-09-13 19:11] LABS: Glucose,Whole Blood 139 mg/dL (70-110)
[2023-09-13 20:21] LABS: Glucose,Whole Blood 154 mg/dL (70-110)
[2023-09-13] MEDS: DILTIAZEM DRIP BOLUS FROM BAG 1 MG SOLN IV STA (20:32)
[2023-09-13] MEDS ORDERED: FUROSEMIDE 20 MG TAB PO SCH (21:00)
[2023-09-13] MEDS: SENNOSIDES-DOCUSATE SODIUM 1 EACH TAB PO SCH (21:09)
[2023-09-14 05:43] LABS: African American GFR (CKD) 79 (>60 ml/min/1.73 sqM); Anion Gap -1 mmol/L; Blood Urea Nitrogen 34 mg/dL (9-20); Calcium 8.6 mg/dL (8.4-10.2); Carbon Dioxide 26 mmol/L (22-30); Chloride 115 mmol/L (98-107); Glucose 110 mg/dL (74-99); HCT 27.3 % (39.0-53.0); MCH 31.6 pg (25.0-35.0); MCHC 32.3 g/dL (31.0-37.0); Magnesium 2.3 mg/dL (1.6-2.3); Non-African American GFR(CKD) 68 (>60 ml/min/1.73 sqM); Platelet Count 175 k/uL (150-450); Potassium 3.4 mmol/L (3.5-5.1); RBC 2.78 m/uL (4.30-5.90); RDW 13.5 % (11.5-15.5); Sodium 140 mmol/L (137-145)
[2023-09-14 06:45] LABS: Glucose,Whole Blood 129 mg/dL (70-110)
[2023-09-14] MEDS ORDERED: Potassium Replacement Protocol 1 EACH MISC MISCELLANE PRN (08:13)
[2023-09-14] MEDS: HYDROcodone/APAP 5-325MG 1 EACH TAB PO PRN (08:26)
[2023-09-14] MEDS: POTASSIUM CHLORIDE ER 20 MEQ TAB.ER PO SCH ×2 (08:32→21:59)
[2023-09-14] MEDS: FUROSEMIDE 40 MG TAB PO SCH (09:18)
--- NOTE | 2023-09-14 09:47 | P.PN ---
Subjective Progress Note Date: 09/14/23 Principal diagnosis: Right femoral neck fracture, A-fib with RVR, acute blood loss anemia Patient was evaluated today at bedside, he is in the ICU currently. He is being followed by multiple medical specialties. Patient states the hip is feeling better today. He is having some discomfort in his left heel, there is no wound there that was readdressed at surgery yesterday. Hemoglobin was noted to be at 8.8. Urinary catheter remains in place. Patient has not been out of bed with physical therapy at this time. Currently denies any headaches, lightheadedness, chest pain or shortness of breath Objective - Vital Signs Vital signs: Vital Signs Temp 98.8 F 09/14/23 04:00 Pulse 110 H 09/14/23 09:00 Resp 26 H 09/14/23 09:00 BP 99/61 09/14/23 09:00 Pulse Ox 96 09/14/23 09:00 FiO2 Intake & Output 09/13/23 09/14/23 09/14/23 18:59 06:59 18:59 Intake Total 701 2259.984 418.333 Output Total 1065 618 115 Balance -364 1641.984 303.333 Weight 79.379 kg Intake: IV 701 1000 350 Sodium Chloride 0.9% 1, 950 300 000 ml @ 100 mls/hr IV . Q10H NAYA Rx#:[id number] ceFAZolin 2 gm In Sodium 50 50 Chloride 0.9% 50 ml @ 100 mls/hr IVPB Q8HR NAYA Rx# :[id number] Intake, IV Titration 59.984 68.333 Amount Diltiazem 125 mg In 68.333 Sodium Chloride 0.9% 100 ml @ 5 MG/HR 5 mls/hr IV .Q24H NAYA Rx#:[id number] Phenylephrine 40 mg In 59.984 Sodium Chloride 0.9% 250 ml @ 0.5 MCG/KG/MIN 15. 122 mls/hr IV .[id number] NAYA Rx#:[id number] Oral 1200 Output: Urine 1050 618 115 Uretheral (Yeager) 800 Estimated Blood Loss 15 Other: Voiding Method Indwelling Catheter Indwelling Catheter - Exam Right lower extremity: Foam dressing is in good position and condition. There is minimal soft tissue swelling and ecchymosis surrounding the medial and lateral aspects of the i ncision. Calf is soft, no tenderness with palpation. Plantar flexion, dorsiflexion, EHL, FHL are intact. Sensory exam to light touch throughout the extremity is intact, dorsal pedis pulses 2+. - Labs CBC & Chem 7: 09/14/23 05:04 09/14/23 05:04 Labs: Abnormal Lab Results - Last 24 Hours (Table) 09/13/23 09/13/23 09/13/23 Range/Units 12:52 16:20 19:09 RBC (4.30-5.90) m/uL Hgb (13.0-17.5) gm/dL Hct (39.0-53.0) % Potassium (3.5-5.1) mmol/L Chloride (98-107) mmol/L BUN (9-20) mg/dL Glucose (74-99) mg/dL POC Glucose (mg/dL) 125 H 124 H 139 H (70-110) mg/dL 09/13/23 09/14/23 09/14/23 Range/Units 20:19 05:04 05:04 RBC 2.78 L (4.30-5.90) m/uL Hgb 8.8 L D (13.0-17.5) gm/dL Hct 27.3 L (39.0-53.0) % Potassium 3.4 L (3.5-5.1) mmol/L Chloride 115 H (98-107) mmol/L BUN 34 H (9-20) mg/dL Glucose 110 H (74-99) mg/dL POC Glucose (mg/dL) 154 H (70-110) mg/dL 09/14/23 Range/Units 06:43 RBC (4.30-5.90) m/uL Hgb (13.0-17.5) gm/dL Hct (39.0-53.0) % Potassium (3.5-5.1) mmol/L Chloride (98-107) mmol/L BUN (9-20) mg/dL Glucose (74-99) mg/dL POC Glucose (mg/dL) 129 H (70-110) mg/dL Assessment and Plan Assessment: Postoperative day #1 status post closed reduction with percutaneous screws right femoral neck fracture Acute blood loss anemia, expected surgical outcome A-fib with RVR Multiple medical comorbidities Plan: Pain control, continue with current medications DVT prophylaxis, cardiac recommendations appreciated. Oral versus subcu anticoagulation is okay via orthopedic standpoint Weight-bear as tolerated with walker PT/OT evaluation Wound care consult placed for left heel wound Ferrous sulfate 325 mg twice daily for anemia Primary admission has been changed to internal medicine, orthopedics will remain on consult Other medical recommendations appreciated Discharge planning: Patient will likely need subacute rehab placement, we will continue to follow during hospital stay Time with Patient: Less than 30
--- NOTE | 2023-09-14 12:30 | P.CNPUL ---
History of Present Illness Consult date: 09/14/23 Requesting physician: Jonathan Blanco Reason for consult: other (ICU management) Chief complaint: Postoperative atrial fibrillation with RVR requiring ICU admission History of present illness: This is an 82-year-old white male who presented to the hospital with impacted femoral neck fracture. Patient underwent cannulated screw fixation of the right hip valgus impacted femoral neck fracture. Postoperative day #1. However while in the recovery yesterday, patient developed atrial fibrillation with RVR, I was notified about this patient for an ICU bed, hence the patient was accepted to the ICU from recovery. Prior to surgery, patient already had atrial fibrillation which was managed by cardiology and apparently the rate was controlled prior to surgery. Patient is known to have hypertension, chronic paroxysmal atrial fibrillation, dyslipidemia, diabetes, coronary artery disease and previous CABG and subsequent stenting. Patient was cleared for surgery by cardiology. Today during my evaluation, patient is on room air, not in any distress, apparently he was hypotensive yesterday requiring Fernando-Synephrine which has been discontinued since 11 PM last night. Patient is on Cardizem at 5 mg/h. Remains in atrial fibrillation with intermittent episodes of of RVR again clinically however the patient is not symptomatic. Denies any shortness of breath denies any chest pain, denies even palpitations labs today showed WBC count of 7 hemoglobin 8.8 electrolytes are normal except for slightly low potassium of 3.4. BUN of 34 creatinine 1.0 Review of Systems REVIEW OF SYSTEMS: CONSTITUTIONAL: Negative. EYES: Negative. ENT: Negative. CARDIAC: As noted HPI PULMONARY: As noted in HPI GI: Negative. GENITOURINARY: Negative. MUSCULOSKELETAL: As noted in HPI SKIN: Negative. NEUROPSYCH: Negative. ENDOCRINE: Negative. HEMATOLOGIC: Negative. Past Medical History Past Medical History: Atrial Fibrillation, Coronary Artery Disease (CAD), Chest Pain / Angina, Diabetes Mellitus, Eye Disorder, Hyperlipidemia, Hypertension, Myocardial Infarction (RI), Skin Disorder, Sleep Apnea/CPAP/BIPAP Additional Past Medical History / Comment(s): Dry skin of lower extrmities, cataracts Last Myocardial Infarction Date:: History of Any Multi-Drug Resistant Organisms: None Reported Past Surgical History: Coronary Bypass/CABG, Heart Catheterization With Stent, Orthopedic Surgery, Tonsillectomy Additional Past Surgical History / Comment(s): CABG (1987), 4 cardiac stenst placed in , Past Anesthesia/Blood Transfusion Reactions: No Reported Reaction Date of Last Stent Placement:: Past Psychological History: No Psychological Hx Reported Smoking Status: Light tobacco smoker Past Alcohol Use History: None Reported Additional Past Alcohol Use History / Comment(s): SMOKED FOR APPROX 56 YEARS. 12 - 1 PPD. QUIT SMOKING 2011. Very occasional cigar smoker, 1 cigar every 3- 4 weeks Past Drug Use History: None Reported - Past Family History Mother Family Medical History: No Reported History Additional Family Medical History / Comment(s): Left family at young age. Father Family Medical History: Myocardial Infarction (RI) Medications and Allergies Home Medications Medication Instructions Recorded Confirmed Type Atorvastatin [Lipitor] 40 mg PO DAILY 05/27/15 09/12/23 History Furosemide [Lasix] 40 mg PO DAILY 05/27/15 09/12/23 History Isosorbide Mononitrate [Isosorbide 30 mg PO DAILY 05/27/15 09/12/23 History Mononitrate ER] Lisinopril-Hctz 20-25 mg 1 tab PO DAILY 05/27/15 09/12/23 History [Zestoretic 20-25] Furosemide [Lasix] 20 mg PO HS 09/12/23 09/12/23 History Metoprolol Tartrate [Lopressor] 12.5 mg PO TID 09/12/23 09/12/23 History Rivaroxaban [Xarelto] 15 mg PO DAILY 09/12/23 09/12/23 History glyBURIDE, MICRONIZED [Glynase] 3 mg PO DAILY 09/12/23 09/12/23 History glyBURIDE,MICRONIZED [Glynase] 1.5 mg PO HS 09/12/23 09/12/23 History Allergies Allergy/AdvReac Type Severity Reaction Status Date / Time No Known Allergies Allergy Verified 09/12/23 15:55 Physical Exam Vitals: Vital Signs Temp Pulse Pulse Resp BP BP Pulse Ox 09/14/23 11:35 97.4 F L 54 L 90/44 94 L 09/14/23 10:00 80 17 119/83 95 09/14/23 09:00 110 H 26 H 99/61 96 09/14/23 08:00 91 22 102/58 98 09/14/23 07:00 96 22 115/71 98 09/14/23 06:00 90 28 H 111/70 98 09/14/23 05:00 83 22 119/72 98 09/14/23 04:00 98.8 F 85 20 120/62 96 09/14/23 03:00 86 19 118/54 97 09/14/23 02:00 81 19 113/96 96 09/14/23 01:30 75 21 123/70 96 09/14/23 01:15 86 16 113/53 94 L 09/14/23 01:00 68 17 124/60 97 09/14/23 00:45 79 19 130/66 99 09/14/23 00:30 87 12 123/57 96 09/14/23 00:15 75 20 126/57 99 09/14/23 00:00 96.8 F L 90 22 126/76 100 09/13/23 23:45 75 19 121/54 99 09/13/23 23:30 87 20 92/63 94 L 09/13/23 23:15 82 18 107/62 96 09/13/23 23:00 87 19 117/64 99 09/13/23 22:45 84 19 131/59 98 09/13/23 22:30 82 22 132/58 99 09/13/23 22:15 80 18 126/70 100 09/13/23 22:00 90 15 127/59 94 L 09/13/23 21:45 65 17 132/70 98 09/13/23 21:30 74 17 95/58 98 09/13/23 21:15 91 14 113/54 97 09/13/23 21:00 93 16 112/62 98 09/13/23 20:45 87 12 117/72 98 09/13/23 20:30 90 20 117/72 94 L 09/13/23 20:21 98 20 09/13/23 20:00 103 H 16 121/67 99 09/13/23 19:50 94 16 130/62 100 09/13/23 19:40 107 H 16 108/65 100 09/13/23 19:30 99 16 119/64 100 09/13/23 19:20 109 H 16 118/70 100 09/13/23 19:10 105 H 14 118/67 100 09/13/23 19:00 97 14 127/74 100 09/13/23 18:50 113 H 14 104/66 100 09/13/23 18:40 110 H 16 99/65 100 09/13/23 18:25 117 H 16 113/62 100 09/13/23 18:15 148 H 16 97/61 99 09/13/23 18:06 97.2 F L 110 H 14 91/60 100 09/13/23 15:54 77 16 172/71 96 09/13/23 15:44 92 16 127/87 97 Intake and Output 09/13/23 09/14/23 09/14/23 22:59 06:59 14:59 Intake Total 416.463 7175 423.583 Output Total 480 403 115 Balance 960.054 5623 308.583 Intake: IV 901 800 350 Sodium Chloride 0.9% 1, 200 750 300 000 ml @ 100 mls/hr IV . Q10H NAYA Rx#:[id number] ceFAZolin 2 gm In Sodium 50 50 Chloride 0.9% 50 ml @ 100 mls/hr IVPB Q8HR NAYA Rx# :[id number] Intake, IV Titration 59.984 73.583 Amount Diltiazem 125 mg In 73.583 Sodium Chloride 0.9% 100 ml @ 5 MG/HR 5 mls/hr IV .Q24H NAYA Rx#:[id number] Phenylephrine 40 mg In 59.984 Sodium Chloride 0.9% 250 ml @ 0.5 MCG/KG/MIN 15. 122 mls/hr IV .[id number] NAYA Rx#:[id number] Oral 1200 Output: Urine 465 403 115 Estimated Blood Loss 15 Other: Voiding Method Indwelling Catheter Indwelling Catheter Indwelling Catheter Weight 79.379 kg GENERAL: Revealed 82-year-old white male pleasant in no distress on room air Head: Atraumatic normocephalic HEENT: Pupils are equal, round. Sclerae anicteric. Mucous membranes of the mouth are moist. Neck supple. No JVD or thyromegaly LUNGS: Clear bilaterally no crackles rhonchi or wheezes. HEART: Irregular irregular rhythm. Tachycardic. Normal S1 and S2 . Systolic murmur noted. ABDOMEN: Soft. Nondistended. Nontender. No megaly no rebound no guarding. EXTREMITIES: No clubbing edema or cyanosis NEUROLOGIC: Alert oriented x 3 no gross focal deficit Psychiatric: Normal mood, affect and normal mental status examination. Skin: No rashes. Results - Laboratory Findings CBC and BMP: 09/14/23 05:04 09/14/23 05:04 PT/INR, D-dimer PT 11.0 sec (10.0-12.5) 09/13/23 13:00 INR 1.0 (<1.2) 09/13/23 13:00 Abnormal lab findings: Abnormal Labs 09/12/23 09/12/23 09/12/23 14:26 14:26 14:26 RBC 3.79 L Hgb 12.0 L Hct 35.9 L Neutrophils # 8.5 H Lymphocytes # 0.5 L Potassium 3.1 L Chloride 109 H BUN 43 H Glucose 151 H POC Glucose (mg/dL) Magnesium 2.6 H Total Bilirubin 1.8 H AST 227 H ALT 74 H Creatine Kinase 4314 H* Troponin I 0.800 H* 09/12/23 09/12/23 09/13/23 17:48 21:04 07:31 RBC Hgb Hct Neutrophils # Lymphocytes # Potassium Chloride 115 H BUN 49 H Glucose 135 H POC Glucose (mg/dL) Magnesium Total Bilirubin AST ALT Creatine Kinase Troponin I 0.797 H* 0.807 H* 09/13/23 09/13/23 09/13/23 12:52 16:20 19:09 RBC Hgb Hct Neutrophils # Lymphocytes # Potassium Chloride BUN Glucose POC Glucose (mg/dL) 125 H 124 H 139 H Magnesium Total Bilirubin AST ALT Creatine Kinase Troponin I 09/13/23 09/14/23 09/14/23 20:19 05:04 05:04 RBC 2.78 L Hgb 8.8 L D Hct 27.3 L Neutrophils # Lymphocytes # Potassium 3.4 L Chloride 115 H BUN 34 H Glucose 110 H POC Glucose (mg/dL) 154 H Magnesium Total Bilirubin AST ALT Creatine Kinase Troponin I 09/14/23 06:43 RBC Hgb Hct Neutrophils # Lymphocytes # Potassium Chloride BUN Glucose POC Glucose (mg/dL) 129 H Magnesium Total Bilirubin AST ALT Creatine Kinase Troponin I - Diagnostic Findings Chest x-ray: image reviewed (Chest x-ray from 09/11 is unremarkable.) Assessment and Plan Assessment: Impression: Status post cannulated screw fixation of right hip valgus impacted femoral neck fracture, postoperative day #1 Paroxysmal atrial fibrillation with RVR, even prior to surgical intervention. Hence postoperative atrial fibrillation with RVR was expected and not related to surgery. Essential hypertension Dyslipidemia Type 2 diabetes without complications History of underlying coronary artery disease previous CABG 1987 and subsequent stenting in 2013 Status post mechanical fall, no evidence of syncope Recommendation: Continue to monitor the patient in the ICU for now, could transfer the patient to a monitored bed and selective if cleared by cardiology. Continue Cardizem for now, continue beta-blockers and doses may have to be increased Continue GI and DVT prophylaxis. Continue anticoagulation therapy for his chronic atrial fibrillation. Incentive spirometry. Will continue to follow Time with Patient: Greater than 30
--- NOTE | 2023-09-14 12:42 | CA ---
Transthoracic Echo Report Name: Jack Lr Age: 82 Gender: M : 1940 Exam Date: 09/13/2023 10:41 Exam Location: [facility] Ht (in): 74 Wt (lb): 175 Ordering Physician: Martha Frazier Attending/Referring Phys: [id number], Karin [employer] Expert [employer] Stephanie Alcala RDCS Procedure CPT: Indications: LV function, elevated trops, surgical clearance Cardiac Hx: Technical Quality: Fair Contrast 1: Total Dose (mL): Contrast 2: Total Dose (mL): MEASUREMENTS (Male / Female) Normal Values 2D ECHO LV Diastolic Diameter PLAX 4.4 cm 4.2 - 5.9 / 3.9 - 5.3 cm LV Systolic Diameter PLAX 3.7 cm IVS Diastolic Thickness 1.9 cm 0.6 - 1.0 / 0.6 - 0.9 cm LVPW Diastolic Thickness 1.6 cm 0.6 - 1.0 / 0.6 - 0.9 cm LV Relative Wall Thickness 0.8 RV Internal Dim ED PLAX 3.2 cm LVOT Diameter 2.2 cm LV Diastolic Volume MOD BP 172.0 cm??? 67 - 155 / 56 - 104 cm??? LV Systolic Volume MOD BP 117.0 cm??? 22 - 58 / 19 - 49 cm??? LV Ejection Fraction MOD BP 32.0 % >= 55 % LV Cardiac Index MOD BP 2082.6 cm???/min???m??? LV Diastolic Volume MOD 4C 175.2 cm??? LV Systolic Volume MOD 4C 107.7 cm??? LV Ejection Fraction MOD 4C 38.5 % LV Cardiac Index MOD 4C 2557.1 cm???/min???m??? LV Diastolic Length 4C 9.4 cm LV Systolic Length 4C 7.8 cm LV Diastolic Volume MOD 2C 168.6 cm??? LV Systolic Volume MOD 2C 129.9 cm??? LV Ejection Fraction MOD 2C 23.0 % LV Cardiac Index MOD 2C 1466.7 cm???/min???m??? LV Diastolic Length 2C 9.4 cm LV Systolic Length 2C 7.8 cm LA Volume 161.7 cm??? 18 - 58 / 22 - 52 cm??? LA Volume Index 79.6 cm???/m??? 16 - 28 cm???/m??? M-MODE Aortic Root Diameter MM 3.8 cm LA Systolic Diameter MM 5.9 cm LA Ao Ratio MM 1.5 AV Cusp Separation MM 1.5 cm DOPPLER AV Peak Velocity 262.5 cm/s AV Peak Gradient 27.6 mmHg AV Mean Velocity 182.2 cm/s AV Mean Gradient 15.0 mmHg AV Velocity Time Integral 58.2 cm LVOT Peak Velocity 85.9 cm/s LVOT Peak Gradient 2.9 mmHg LVOT Velocity Time Integral 21.2 cm LVOT Stroke Volume 78.6 cm??? LVOT Stroke Volume Index 38.3 ml/m??? LVOT Cardiac Index 2975.8 cm???/min???m??? AV Area Cont Eq vti 1.3 cm??? AV Area Cont Eq pk 1.2 cm??? MV Peak Velocity 170.0 cm/s MV Peak Gradient 11.6 mmHg MV Mean Velocity 102.9 cm/s MV Mean Gradient 4.7 mmHg MV Velocity Time Integral 65.0 cm MV Area PHT 2.5 cm??? Mitral E Point Velocity 139.9 cm/s Mitral A Point Velocity 160.5 cm/s Mitral E to A Ratio 0.9 MV Deceleration Time 303.1 ms MV E' Velocity 3.5 cm/s Mitral E to MV E' Ratio 39.7 TR Peak Velocity 330.3 cm/s TR Peak Gradient 43.6 mmHg Right Ventricular Systolic Press 55.0 mmHg FINDINGS Left Ventricle Severely increased septal wall thickness. Mildly increased left ventricular diastolic volume. Severely increased left ventricular systolic volume. Moderately decreased left ventricular ejection fraction. Left ventricular ejection fraction is estimated at 35-40 %. Grade 2 diastolic dysfunction. Abnormal (paradoxical) septal motion consistent with postoperative state. Right Ventricle Normal right ventricular size and function. Moderate pulmonary hypertension. Right ventricular systolic pressure estimated at 55 mm hg. Right Atrium Normal right atrial size. Left Atrium Severely increased left atrial volume. Moderately increased left atrial area. Mitral Valve Severe mitral annular calcification. Mitral valve thickened. [id number] mitral regurgitation. Centrally directed mitral regurgitation jet. Mild mitral stenosis. Aortic Valve Trileaflet aortic valve. Mild aortic stenosis with a peak gradient of 28 mmHg and a mean gradient of 15 mmHg. Right coronary cusp is not opening well. Tricuspid Valve Structurally normal tricuspid valve. Moderate tricuspid regurgitation. Central jet of tricuspid regurgitation. Pulmonic Valve Structurally normal pulmonic valve. Trace pulmonic regurgitation. Pericardium No pericardial effusion. Aorta Normal size aortic root and proximal ascending aorta. CONCLUSIONS Severely increased left ventricular wall thickness Left ventricular ejection fraction 35-40% RVSP 55 Moderate to severely dilated left atrium Severe mitral and calcification Mild mitral stenosis [id number] mitral regurgitation Mild aortic stenosis Moderate tricuspid regurgitation Previewed by: Dr. José Miguel Maradiaga DO (Electronically Signed) Final Date: 14 September 2023 12:41
--- NOTE | 2023-09-14 13:19 | PN ---
PROGRESS NOTE SUBJECTIVE: An 82-year-old gentleman, who was admitted to hospital with hip fracture and has a history of atrial fibrillation and we have seen him for preop evaluation. This morning, the patient underwent surgery. Appears comfortable at rest. Denied any symptoms. Currently on intravenous Cardizem for rate control, on Lopressor 12.5 t.i.d., and also on Xarelto. OBJECTIVE: VITAL SIGNS: Heart rate is 80 beats per minute, blood pressure is 120/82, respiratory rate is 18. CHEST: Reveals good air entry bilaterally. HEART: Reveals first and second heart sounds. Irregular rhythm. ABDOMEN: Soft. EXTREMITIES: Did not reveal any edema. Peripheral pulses are felt. ASSESSMENT: 1. Status post fall and hip fracture. 2. Persistent atrial fibrillation with poorly controlled ventricular rate. PLAN: Once heart rates are well controlled, I am going to stop the Cardizem. MMHERVEL / DANNIEN: [id number] /
[2023-09-14 14:16] VITALS: BMI 22.4
[2023-09-14 16:51] LABS: Glucose,Whole Blood 232 mg/dL (70-110)
[2023-09-14 16:53] LABS: Glucose,Whole Blood 196 mg/dL (70-110)
[2023-09-14] MEDS: FERROUS SULFATE 325 MG TAB PO SCH (16:53)
[2023-09-14] MEDS: RIVAROXABAN 20 MG TAB PO SCH (16:53)
[2023-09-14] MEDS ORDERED: RIVAROXABAN 15 MG TAB PO SCH (17:30)
--- NOTE | 2023-09-14 19:04 | P.PN ---
Subjective Progress Note Date: 09/14/23 - History of Present Illness 82-year-old male had a mechanical fall and had a nondisplaced right femoral neck fracture. Patient is not having any significant pain patient has multiple medical issues including atrial fibrillation congestive heart failure systolic function of 40% hypertension and coronary artery disease. Patient has mild elevated troponins up 0.8-0.79 0.80 mostly flat patient does not have any chest pain echocardiogram was ordered cardiology evaluated for clearance. Patient is high operative risk for surgery as this is an urgent surgery patient still should pursue surgery. Same thing was explained to the patient explained and patient wanted to go get the surgery done as soon as possible. Patient is presently hypovolemic and does have acute renal failure patient creatinine is 1.9 with baseline creatinine is around 0.9 and patient is also hypotensive because of which antihypertensive medications are being held. 09/14/2023 Patient is seen and evaluated in follow-up in the ICU and is status post screw fixation of the right hip impacted femoral neck fracture postop day #1. Multiple medical consultations including pulmonary deicer finisher, orthopedics, cardiology following. Patient is being resumed on Xarelto and also Cardizem drip is being discontinued. Patient's mentation is much improved and patient is alert and oriented x 3. Patient currently sitting up in the chair reporting minimal discomfort in the right hip. Surgical site is dry and intact and patient reports to feeling weak. PT/OT therapy to evaluate as patient may require ECF on discharge for continued strength and mobility. Patient does live alone at home with his dog and was ambulatory and independent prior to this. Patient is being considered a transfer out of the ICU today once a bed becomes available. Guarded prognosis. Will continue gentle hydration and follow-up with repeat labs as patient appears to be mildly dehydrated. Monitor closely as patient does have history of heart failure. Review of systems: Constitutional: No reports of fatigue, fever, or chills Cardiovascular: No reports of chest pain or palpitations Respiratory: No reports of shortness of breath or cough GI: No reports of nausea, vomiting, or diarrhea : No reports of dysuria or retention Neurovascular: reports of generalized weakness some minimal right hip discomfort All medications have been reviewed Active Medications Acetaminophen (Acetaminophen Tab 325 Mg Tab) 650 mg PO Q6HR PRN PRN Reason: Mild Pain or Fever > 100.5 Hydrocodone Bitart/Acetaminophen (Hydrocodone/Apap 5-325mg 1 Each Tab) 1 each PO Q6HR PRN PRN Reason: Pain Last Admin: 09/14/23 08:26 Dose: 1 each Hydrocodone Bitart/Acetaminophen (Hydrocodone/Apap 7.5-325mg 1 Each Tab) 1 each PO Q6H PRN PRN Reason: Pain Scale 6 to 10 Atorvastatin Calcium (Atorvastatin 40 Mg Tab) 40 mg PO DAILY [facility] Last Admin: 09/14/23 08:32 Dose: 40 mg Ferrous Sulfate (Ferrous Sulfate 325 Mg Tab) 325 mg PO BID-W/MEALS [facility] Furosemide (Furosemide 40 Mg Tab) 40 mg PO DAILY [facility] Last Admin: 09/14/23 09:18 Dose: 40 mg Sodium Chloride (Saline 0.9%) 1,000 mls @ 100 mls/hr IV .Q10H [facility] Last Admin: 09/13/23 20:30 Dose: 100 mls/hr Phenylephrine HCl 40 mg/ (Sodium Chloride) 254 mls @ 15.122 mls/hr IV .[id number] [facility]; Protocol Last Titration: 09/13/23 22:41 Dose: 0 mcg/kg/min, 0 mls/hr Diltiazem HCl 125 mg/ Sodium (Chloride) 125 mls @ 5 mls/hr IV .Q24H [facility]; Protocol Last Infusion: 09/14/23 09:17 Dose: 5 mg/hr, 5 mls/hr Insulin Aspart (Insulin Aspart (Novolog) 100 Unit/Ml Vial) 0 unit SQ AC-TID [facility] ; Protocol Last Admin: 09/14/23 07:37 Dose: Not Given Isosorbide Mononitrate (Isosorbide Mononitrate Er 30 Mg Tab.Er.24h) 30 mg PO DAILY [facility] Last Admin: 09/13/23 09:55 Dose: Not Given Magnesium Hydroxide (Magnesium Hydroxide 2,400 Mg/30 Ml Cup) 2,400 mg PO DAILY PRN PRN Reason: Constipation Metoprolol Tartrate (Metoprolol Tartrate 12.5 Mg Tab) 12.5 mg PO TID [facility] Last Admin: 09/14/23 09:18 Dose: 12.5 mg Miscellaneous Information (Potassium Replacement Protocol 1 Each Misc) 1 each MISCELLANE DAILY PRN; Protocol PRN Reason: Per Protocol Naloxone HCl (Naloxone 0.4 Mg/Ml 1 Ml Vial) 0.2 mg IV Q2M PRN PRN Reason: Opioid Reversal Rivaroxaban (Rivaroxaban 15 Mg Tab) 15 mg PO W/SUPPER [facility]; Protocol Senna/Docusate Sodium (Sennosides-Docusate Sodium 1 Each Tab) 2 each PO HS [facility] Last Admin: 09/13/23 21:09 Dose: 2 each Tramadol HCl (Tramadol 50 Mg Tab) 50 mg PO Q6HR PRN PRN Reason: Pain Scale 1 to 5 PHYSICAL EXAMINATION: GENERAL: The patient is alert and oriented x3, currently sitting up in the chair not in any acute distress. Well developed, well nourished. HEENT: Pupils are round and equally reacting to light. EOMI. No scleral icterus. No conjunctival pallor. Normocephalic, atraumatic. No pharyngeal erythema. No thyromegaly. CARDIOVASCULAR: S1 and S2 muffled, irregular, currently rate controlled PULMONARY: Chest is clear to auscultation, no wheezing or crackles. ABDOMEN: Soft, nontender, nondistended, normoactive bowel sounds. No palpable organomegaly. MUSCULOSKELETAL: Deferred to orthopedic surgery. EXTREMITIES: No cyanosis, clubbing, or pedal edema. NEUROLOGICAL: Gross neurological examination did not reveal any focal deficits. Diffusely weak SKIN: No rashes. Assessment: -Preoperative clearance for right hip fracture: Patient is considered high operative risk for surgery and is status post screw fixation of the right hip due to an impacted femoral fracture from a fall, postop day 1 -Atrial fibrillation with RVR, currently rate controlled and being discontinued off Cardizem drip, Xarelto resumed, cardiology following -Congestive heart failure chronic systolic function and diastolic function without any acute exacerbation patient is in fact hypovolemic patient is on IV fluids which will be continued patient was started on of oral Lasix which will be discontinued patient may end up getting volume overloaded because of the IV fluids he is going to receive in the OR, will closely monitor for heart failure exacerbation patient will be resumed on oral Lasix from tomorrow 09/15/2023 with close monitoring for heart failure exacerbation -Troponin elevation probably chronic and secondary to acute renal failure and congestive heart failure -Acute renal failure prerenal azotemia secondary to hypovolemia: IV fluids, hold off on diuretics will follow-up with repeat labs and may consider resuming oral Lasix starting 09/15/2023 -Hypertension patient was hypotensive and maintained on low-dose pressor support, currently off pressors -Hyperlipidemia -Hypertension -Coronary artery disease -GI prophylaxis -DVT prophylaxis: As per primary service and patient is on Xarelto and being resumed -Full code Plan: Patient currently continues in the ICU with multiple consultations following. Patient is a transfer out of the ICU once a bed becomes available Patient was evaluated by cardiology for atrial fibrillation with RVR currently rate controlled and Cardizem is being discontinued. Patient being resumed on Xarelto and also adjusted to medications. Continue telemetry monitoring Encourage incentive spirometer use at least 10 times every hour while awake Encourage oral intake and follow-up on repeat labs. Replace electrolytes per protocol Orthopedics will continue following and medical service taking over for admitting and attending Awaiting PT/OT therapy evaluation and patient will most likely require ECF for continued strength and mobility. Patient was independent prior to this fall and currently lives home alone Consult to case management/social work for discharge planning Patient to continue on gentle IV hydration and will follow-up and monitor kidney functions and respiratory status closely as patient does have history of heart failure. The impression and plan of care has been dictated by Viv Moulton, Nurse Practitioner as directed. Dr. Reanna MD I have performed a history and examination and MDM of this patient, discussed the same with the dictator, and agree with the dictator's assessment and plan as written ,documented as a scribe. Based on total visit time, I have performed more than 50% of the visit. Objective - Vital Signs Vital signs: Vital Signs Temp 98.8 F 09/14/23 04:00 Pulse 80 09/14/23 10:00 Resp 17 09/14/23 10:00 BP 119/83 09/14/23 10:00 Pulse Ox 95 09/14/23 10:00 FiO2 Intake & Output 09/13/23 09/14/23 09/14/23 18:59 06:59 18:59 Intake Total 701 2259.984 418.333 Output Total 1065 618 115 Balance -364 1641.984 303.333 Weight 79.379 kg Intake: IV 701 1000 350 Sodium Chloride 0.9% 1, 950 300 000 ml @ 100 mls/hr IV . Q10H [facility] Rx#:[id number] ceFAZolin 2 gm In Sodium 50 50 Chloride 0.9% 50 ml @ 100 mls/hr IVPB Q8HR [facility] Rx# :[id number] Intake, IV Titration 59.984 68.333 Amount Diltiazem 125 mg In 68.333 Sodium Chloride 0.9% 100 ml @ 5 MG/HR 5 mls/hr IV .Q24H [facility] Rx#:[id number] Phenylephrine 40 mg In 59.984 Sodium Chloride 0.9% 250 ml @ 0.5 MCG/KG/MIN 15. 122 mls/hr IV .[id number] [facility] Rx#:[id number] Oral 1200 Output: Urine 1050 618 115 Uretheral (Yeager) 800 Estimated Blood Loss 15 Other: Voiding Method Indwelling Catheter Indwelling Catheter - Labs CBC & Chem 7: 09/14/23 05:04 09/14/23 17:45 Labs: Abnormal Lab Results - Last 24 Hours (Table) 09/13/23 09/13/23 09/13/23 Range/Units 12:52 16:20 19:09 RBC (4.30-5.90) m/uL Hgb (13.0-17.5) gm/dL Hct (39.0-53.0) % Potassium (3.5-5.1) mmol/L Chloride (98-107) mmol/L BUN (9-20) mg/dL Glucose (74-99) mg/dL POC Glucose (mg/dL) 125 H 124 H 139 H (70-110) mg/dL 09/13/23 09/14/23 09/14/23 Range/Units 20:19 05:04 05:04 RBC 2.78 L (4.30-5.90) m/uL Hgb 8.8 L D (13.0-17.5) gm/dL Hct 27.3 L (39.0-53.0) % Potassium 3.4 L (3.5-5.1) mmol/L Chloride 115 H (98-107) mmol/L BUN 34 H (9-20) mg/dL Glucose 110 H (74-99) mg/dL POC Glucose (mg/dL) 154 H (70-110) mg/dL 09/14/23 Range/Units 06:43 RBC (4.30-5.90) m/uL Hgb (13.0-17.5) gm/dL Hct (39.0-53.0) % Potassium (3.5-5.1) mmol/L Chloride (98-107) mmol/L BUN (9-20) mg/dL Glucose (74-99) mg/dL POC Glucose (mg/dL) 129 H (70-110) mg/dL
[2023-09-14 19:57] LABS: Glucose,Whole Blood 208 mg/dL (70-110)
[2023-09-15 03:43] LABS: Basophils % (A) 0 %; Eosinophils # (A) 0.4 k/uL (0-0.7); Eosinophils % (A) 8 %; HCT 26.6 % (39.0-53.0); HGB 8.7 gm/dL (13.0-17.5); Lymphocytes # (A) 0.9 k/uL (1.0-4.8); Lymphocytes % (A) 17 %; MCHC 32.5 g/dL (31.0-37.0); MCV 98.5 fL (80.0-100.0); Monocytes # (A) 0.3 k/uL (0-1.0); Monocytes % (A) 5 %; Neutrophils # (A) 3.7 k/uL (1.3-7.7); Neutrophils % (A) 67 %; Platelet Count 169 k/uL (150-450); RDW 13.5 % (11.5-15.5); WBC 5.4 k/uL (3.8-10.6)
[2023-09-15 04:00] LABS: AST 63 U/L (17-59); African American GFR (CKD) 77 (>60 ml/min/1.73 sqM); Albumin 2.5 g/dL (3.5-5.0); Alkaline Phosphatase 43 U/L (38-126); Blood Urea Nitrogen 31 mg/dL (9-20); Calcium 8.6 mg/dL (8.4-10.2); Carbon Dioxide 21 mmol/L (22-30); Chloride 113 mmol/L (98-107); Glucose 129 mg/dL (74-99); Magnesium 2.3 mg/dL (1.6-2.3); Non-African American GFR(CKD) 67 (>60 ml/min/1.73 sqM); Total Bilirubin 0.8 mg/dL (0.2-1.3); Total Protein 4.7 g/dL (6.3-8.2)
[2023-09-15 04:01] LABS: ALT 33 U/L (4-49); Anion Gap 3 mmol/L; Potassium 4.3 mmol/L (3.5-5.1); Sodium 137 mmol/L (137-145)
[2023-09-15 07:14] LABS: Glucose,Whole Blood 151 mg/dL (70-110)
--- NOTE | 2023-09-15 08:18 | P.PN ---
Subjective Progress Note Date: 09/15/23 Principal diagnosis: Right femoral neck fracture, A-fib with RVR, acute blood loss anemia Patient was evaluated today at bedside, he is in the ICU currently. Patient states that the hip continues to feel better. Therapy is on the floor and will be working with the patient shortly. Urinary catheter will be removed today. Hemoglobin remained stable. Currently denies any headaches, lightheadedness, chest pain or shortness of breath Objective - Vital Signs Vital signs: Vital Signs Temp 98.1 F 09/15/23 04:00 Pulse 78 09/15/23 08:00 Resp 14 09/15/23 08:00 BP 133/71 09/15/23 08:00 Pulse Ox 96 09/15/23 08:00 FiO2 Intake & Output 09/14/23 09/15/23 09/15/23 18:59 06:59 18:59 Intake Total 773.583 600 Output Total 515 400 Balance 258.583 200 Weight 79.379 kg 71.8 kg Intake: IV 700 600 NS @50 400 Sodium Chloride 0.9% 1, 650 200 000 ml @ 100 mls/hr IV . Q10H [facility] Rx#:[id number] ceFAZolin 2 gm In Sodium 50 Chloride 0.9% 50 ml @ 100 mls/hr IVPB Q8HR [facility] Rx# :[id number] Intake, IV Titration 73.583 Amount Diltiazem 125 mg In 73.583 Sodium Chloride 0.9% 100 ml @ 5 MG/HR 5 mls/hr IV .Q24H [facility] Rx#:[id number] Output: Urine 515 400 Other: Voiding Method Indwelling Catheter Indwelling Catheter # Bowel Movements 1 - Exam Right lower extremity: Foam dressing is in good position and condition. There is minimal soft tissue swelling and ecchymosis surrounding the medial and lateral aspects of the incision. Calf is soft, no tenderness with palpation. Plantar flexion, dorsiflexion, EHL, FHL are intact. Sensory exam to light touch throughout the extremity is intact, dorsal pedis pulses 2+. - Labs CBC & Chem 7: 09/15/23 03:16 09/15/23 03:16 Labs: Abnormal Lab Results - Last 24 Hours (Table) 09/14/23 09/14/23 09/14/23 Range/Units 16:49 16:51 19:55 RBC (4.30-5.90) m/uL Hgb (13.0-17.5) gm/dL Hct (39.0-53.0) % Lymphocytes # (1.0-4.8) k/uL Chloride (98-107) mmol/L Carbon Dioxide (22-30) mmol/L BUN (9-20) mg/dL Glucose (74-99) mg/dL POC Glucose (mg/dL) 232 H 196 H 208 H (70-110) mg/dL AST (17-59) U/L Total Protein (6.3-8.2) g/dL Albumin (3.5-5.0) g/dL 09/15/23 09/15/23 09/15/23 Range/Units 03:16 03:16 06:43 RBC 2.70 L (4.30-5.90) m/uL Hgb 8.7 L (13.0-17.5) gm/dL Hct 26.6 L (39.0-53.0) % Lymphocytes # 0.9 L (1.0-4.8) k/uL Chloride 113 H (98-107) mmol/L Carbon Dioxide 21 L (22-30) mmol/L BUN 31 H (9-20) mg/dL Glucose 129 H (74-99) mg/dL POC Glucose (mg/dL) 151 H (70-110) mg/dL AST 63 H (17-59) U/L Total Protein 4.7 L (6.3-8.2) g/dL Albumin 2.5 L (3.5-5.0) g/dL Assessment and Plan Assessment: Postoperative day #2 status post closed reduction with percutaneous screws right femoral neck fracture Acute blood loss anemia, expected surgical outcome A-fib with RVR Multiple medical comorbidities Plan: Pain control, continue with current medications DVT prophylaxis, cardiac recommendations appreciated. Oral versus subcu anticoagulation is okay via orthopedic standpoint Weight-bear as tolerated with walker PT/OT evaluation Wound care consult placed for left heel wound Ferrous sulfate 325 mg twice daily for anemia Other medical recommendations appreciated Discharge planning: Recommending subacute rehab, will continue to follow during hospital stay Time with Patient: Less than 30
--- NOTE | 2023-09-15 10:08 | P.PN ---
Subjective Progress Note Date: 09/15/23 This is an 82-year-old white male who presented to the hospital with impacted femoral neck fracture. Patient underwent cannulated screw fixation of the right hip valgus impacted femoral neck fracture. Postoperative day #1. However while in the recovery yesterday, patient developed atrial fibrillation with RVR, I was notified about this patient for an ICU bed, hence the patient was accepted to the ICU from recovery. Prior to surgery, patient already had atrial fibrillation which was managed by cardiology and apparently the rate was controlled prior to surgery. Patient is known to have hypertension, chronic paroxysmal atrial fibrillation, dyslipidemia, diabetes, coronary artery disease and previous CABG and subsequent stenting. Patient was cleared for surgery by cardiology. Today during my evaluation, patient is on room air, not in any distress, apparently he was hypotensive yesterday requiring Fernando-Synephrine which has been discontinued since 11 PM last night. Patient is on Cardizem at 5 mg/h. Remains in atrial fibrillation with intermittent episodes of of RVR again clinically however the patient is not symptomatic. Denies any shortness of breath denies any chest pain, denies even palpitations labs today showed WBC count of 7 hemoglobin 8.8 electrolytes are normal except for slightly low potassium of 3.4. BUN of 34 creatinine 1.0 The patient is seen today September 15, 2023 in follow-up in the intensive care unit. He is currently awake and alert in no acute distress. He is maintaining good O2 saturations in the 90s on room air. He has been afebrile. Hemodynamically stable. He remains in atrial fibrillation with a controlled ventricular rate. White count 5.4. Hemoglobin 8.7. Platelets 169. Sodium 137. Potassium 4.3. Bicarb 21. BUN 31. Creatinine 1.03. Glucose 129. He is anticoagulated with Xarelto. Remains on oral diuretics. Right leg dressing is dry and intact. Pain is well-controlled. Objective - Vital Signs Vital signs: Vital Signs Temp 98.1 F 09/15/23 04:00 Pulse 78 09/15/23 08:00 Resp 14 09/15/23 08:00 BP 133/71 09/15/23 08:00 Pulse Ox 96 09/15/23 08:00 FiO2 Intake & Output 09/14/23 09/15/23 09/15/23 18:59 06:59 18:59 Intake Total 773.583 600 Output Total 515 400 150 Balance 258.583 200 -150 Weight 79.379 kg 71.8 kg Intake: IV 700 600 NS @50 400 Sodium Chloride 0.9% 1, 650 200 000 ml @ 100 mls/hr IV . Q10H [facility] Rx#:[id number] ceFAZolin 2 gm In Sodium 50 Chloride 0.9% 50 ml @ 100 mls/hr IVPB Q8HR [facility] Rx# :[id number] Intake, IV Titration 73.583 Amount Diltiazem 125 mg In 73.583 Sodium Chloride 0.9% 100 ml @ 5 MG/HR 5 mls/hr IV .Q24H [facility] Rx#:[id number] Output: Urine 515 400 150 Other: Voiding Method Indwelling Catheter Indwelling Catheter Indwelling Catheter # Bowel Movements 1 - Exam GENERAL EXAM: Alert, very pleasant 82-year-old gentleman, on room air, fairly comfortable in no apparent distress. HEAD: Normocephalic. EYES: Normal reaction of pupils, equal size. NOSE: Clear with pink turbinates. THROAT: No erythema or exudates. NECK: No masses, no JVD. CHEST: No chest wall deformity. LUNGS: Equal air entry with no crackles, wheeze, rhonchi or dullness. CVS: S1 and S2 normal with no audible murmur, irregular rhythm. ABDOMEN: No hepatosplenomegaly, normal bowel sounds, no guarding or rigidity. SPINE: No scoliosis or deformity SKIN: No rashes CENTRAL NERVOUS SYSTEM: No focal deficits, tone is normal in all 4 extremities. EXTREMITIES: Right leg dressing is dry and intact. Minimal ecchymosis and bruising. There is 1+ peripheral edema. No clubbing, no cyanosis. Peripheral pulses are intact. - Labs CBC & Chem 7: 09/15/23 03:16 09/15/23 03:16 Labs: Abnormal Lab Results - Last 24 Hours (Table) 09/14/23 09/14/23 09/14/23 Range/Units 16:49 16:51 19:55 RBC (4.30-5.90) m/uL Hgb (13.0-17.5) gm/dL Hct (39.0-53.0) % Lymphocytes # (1.0-4.8) k/uL Chloride (98-107) mmol/L Carbon Dioxide (22-30) mmol/L BUN (9-20) mg/dL Glucose (74-99) mg/dL POC Glucose (mg/dL) 232 H 196 H 208 H (70-110) mg/dL AST (17-59) U/L Total Protein (6.3-8.2) g/dL Albumin (3.5-5.0) g/dL 09/15/23 09/15/23 09/15/23 Range/Units 03:16 03:16 06:43 RBC 2.70 L (4.30-5.90) m/uL Hgb 8.7 L (13.0-17.5) gm/dL Hct 26.6 L (39.0-53.0) % Lymphocytes # 0.9 L (1.0-4.8) k/uL Chloride 113 H (98-107) mmol/L Carbon Dioxide 21 L (22-30) mmol/L BUN 31 H (9-20) mg/dL Glucose 129 H (74-99) mg/dL POC Glucose (mg/dL) 151 H (70-110) mg/dL AST 63 H (17-59) U/L Total Protein 4.7 L (6.3-8.2) g/dL Albumin 2.5 L (3.5-5.0) g/dL Assessment and Plan Assessment: Status post cannulated screw fixation of right hip valgus impacted femoral neck fracture, postoperative day #2 Paroxysmal atrial fibrillation with RVR, even prior to surgical intervention. Hence postoperative atrial fibrillation with RVR was expected and not related to surgery. Currently in a controlled ventricular rate Essential hypertension Dyslipidemia Type 2 diabetes without complications History of underlying coronary artery disease previous CABG 1987 and subsequent stenting in 2013 Status post mechanical fall, no evidence of syncope Plan: The patient was seen and evaluated Labs and medications reviewed Stable and on room air Ventricular rate is controlled Anticoagulated with Xarelto Remains a 3 S. overflow patient Plan is for subacute rehab at discharge This patient was seen independently by the pulmonary/critical care nurse practitioner I have personally seen and examined the patient, performed the documentation and the assessment and plan as written. Number of minutes spent on the visit: 24.
[2023-09-15 11:38] LABS: HGB 8.8 gm/dL (13.0-17.5)
[2023-09-15 11:48] LABS: Glucose,Whole Blood 277 mg/dL (70-110)
--- NOTE | 2023-09-15 15:51 | P.PN ---
Subjective Progress Note Date: 09/15/23 - History of Present Illness 82-year-old male had a mechanical fall and had a nondisplaced right femoral neck fracture. Patient is not having any significant pain patient has multiple medical issues including atrial fibrillation congestive heart failure systolic function of 40% hypertension and coronary artery disease. Patient has mild elevated troponins up 0.8-0.79 0.80 mostly flat patient does not have any chest pain echocardiogram was ordered cardiology evaluated for clearance. Patient is high operative risk for surgery as this is an urgent surgery patient still should pursue surgery. Same thing was explained to the patient explained and patient wanted to go get the surgery done as soon as possible. Patient is presently hypovolemic and does have acute renal failure patient creatinine is 1 .9 with baseline creatinine is around 0.9 and patient is also hypotensive because of which antihypertensive medications are being held. 09/14/2023 Patient is seen and evaluated in follow-up in the ICU and is status post screw fixation of the right hip impacted femoral neck fracture postop day #1. [facility] medical consultations including pulmonary whey department operator, orthopedics, cardiology following. Patient is being resumed on Xarelto and also Cardizem drip is being discontinued. Patient's mentation is much improved and patient is alert and oriented x 3. Patient currently sitting up in the chair reporting minimal discomfort in the right hip. Surgical site is dry and intact and patient reports to feeling weak. PT/OT therapy to evaluate as patient may require ECF on discharge for continued strength and mobility. Patient does live alone at home with his dog and was ambulatory and independent prior to this. Patient is being considered a transfer out of the ICU today once a bed becomes available. Guarded prognosis. Will continue gentle hydration and follow-up with repeat labs as patient appears to be mildly dehydrated. Monitor closely as patient does have history of heart failure. 09/15/2023 Patient is evaluated today on the cardiac stepdown unit,he was downgraded from the ICU. He is postoperative day#2 right hip arthroplasty. He reports minimal pain to the right hip. Getting up to the chair. Patient is currently off IV cardizem gtt at this time and currently rate controlled remains in atrial fibrillation. Echocardiogram comes back showing EF 35-40% and grade 2 diastolic dysfunction, mild aortic stenosis, mild to moderate mitral regurgitation, moderate TR, mild mitral stenosis. He is pending PT evaluation for discharge planning. White blood cell count 5.4, hgb 8.7, sodium 137, potassium 4.3, BUN 31, creatinine 1.03, liver enzymes significantly improved. Hemodynamically he is stable. Review of systems: Constitutional: No reports of fatigue, fever, or chills Cardiovascular: No reports of chest pain or palpitations Respiratory: No reports of shortness of breath or cough GI: No reports of nausea, vomiting, or diarrhea : No reports of dysuria or retention Neurovascular: reports of generalized weakness some minimal right hip discomfort All medications have been reviewed PHYSICAL EXAMINATION: GENERAL: The patient is alert and oriented x3, currently sitting up in the chair not in any acute distress. Well developed, well nourished. HEENT: Pupils are round and equally reacting to light. EOMI. No scleral icterus. No conjunctival pallor. Normocephalic, atraumatic. No pharyngeal erythema. No thyromegaly. CARDIOVASCULAR: S1 and S2 muffled, irregular, currently rate controlled PULMONARY: Chest is clear to auscultation, no wheezing or crackles. ABDOMEN: Soft, nontender, nondistended, normoactive bowel sounds. No palpable organomegaly. MUSCULOSKELETAL: Deferred to orthopedic surgery. EXTREMITIES: No cyanosis, clubbing, or pedal edema. NEUROLOGICAL: Gross neurological examination did not reveal any focal deficits. Diffusely weak SKIN: No rashes. Assessment: -Preoperative clearance for right hip fracture: Patient is considered high operative risk for surgery and is status post screw fixation of the right hip due to an impacted femoral fracture from a fall, postop day 2 -Atrial fibrillation with RVR, currently rate controlled and being discontinued off Cardizem drip, Xarelto resumed, cardiology following -Congestive heart failure chronic systolic function and diastolic function without any acute exacerbation patient is in fact hypovolemic patient is on IV fluids which will be continued patient was started on of oral Lasix which will be discontinued patient may end up getting volume overloaded because of the IV fluids he is going to receive in the OR, will closely monitor for heart failure exacerbation patient will be resumed on oral Lasix with close monitoring for heart failure exacerbation -Troponin elevation probably chronic and secondary to acute renal failure and congestive heart failure -Acute renal failure prerenal azotemia secondary to hypovolemia: IV fluids, hold off on diuretics will follow-up with repeat labs and has been resumed on oral lasix, fluids are discontinued. -Hypertension patient was hypotensive and maintained on low-dose pressor support, currently off pressors -Hyperlipidemia -Hypertension -Coronary artery disease -GI prophylaxis -DVT prophylaxis: As per primary service and patient is on Xarelto and being resumed -Full code Plan: Patient has been transferred out of the ICU. He is on the steop down unit. Patient was evaluated by cardiology for atrial fibrillation with RVR currently rate controlled and Cardizem is being discontinued. Patient being resumed on Xarelto and also adjusted to medications. Continue telemetry monitoring Encourage incentive spirometer use at least 10 times every hour while awake Encourage oral intake and follow-up on repeat labs. Replace electrolytes per protocol Orthopedics will continue following and medical service taking over for admitting and attending Awaiting PT/OT therapy evaluation and patient will most likely require ECF for continued strength and mobility. Patient was independent prior to this fall and currently lives home alone Consult to case management/social work for discharge planning Patient to continue on gentle IV hydration and will follow-up and monitor kidney functions and respiratory status closely as patient does have history of heart failure. The impression and plan of care has been dictated by Margret Buchanan Nurse Practitioner as directed. Dr. Reanna MD I have performed a history and physical examination and medical decision making of this patient, discussed the same with the dictator, and agree with the dictators assessment and plan as written, documented as a scribe. Based on total visit time, I have performed more than 50% of this visit. Objective - Vital Signs Vital signs: Vital Signs Temp 98.1 F 09/15/23 04:00 Pulse 78 09/15/23 08:00 Resp 14 09/15/23 08:00 BP 133/71 09/15/23 08:00 Pulse Ox 96 09/15/23 08:00 FiO2 Intake & Output 09/14/23 09/15/23 09/15/23 18:59 06:59 18:59 Intake Total 773.583 600 Output Total 515 400 150 Balance 258.583 200 -150 Weight 79.379 kg 71.8 kg Intake: IV 700 600 NS @50 400 Sodium Chloride 0.9% 1, 650 200 000 ml @ 100 mls/hr IV . Q10H [facility] Rx#:[id number] ceFAZolin 2 gm In Sodium 50 Chloride 0.9% 50 ml @ 100 mls/hr IVPB Q8HR [facility] Rx# :[id number] Intake, IV Titration 73.583 Amount Diltiazem 125 mg In 73.583 Sodium Chloride 0.9% 100 ml @ 5 MG/HR 5 mls/hr IV .Q24H [facility] Rx#:[id number] Output: Urine 515 400 150 Other: Voiding Method Indwelling Catheter Indwelling Catheter # Bowel Movements 1 - Labs CBC & Chem 7: 09/15/23 03:16 09/15/23 03:16 Labs: Abnormal Lab Results - Last 24 Hours (Table) 09/14/23 09/14/23 09/14/23 Range/Units 16:49 16:51 19:55 RBC (4.30-5.90) m/uL Hgb (13.0-17.5) gm/dL Hct (39.0-53.0) % Lymphocytes # (1.0-4.8) k/uL Chloride (98-107) mmol/L Carbon Dioxide (22-30) mmol/L BUN (9-20) mg/dL Glucose (74-99) mg/dL POC Glucose (mg/dL) 232 H 196 H 208 H (70-110) mg/dL AST (17-59) U/L Total Protein (6.3-8.2) g/dL Albumin (3.5-5.0) g/dL 09/15/23 09/15/23 09/15/23 Range/Units 03:16 03:16 06:43 RBC 2.70 L (4.30-5.90) m/uL Hgb 8.7 L (13.0-17.5) gm/dL Hct 26.6 L (39.0-53.0) % Lymphocytes # 0.9 L (1.0-4.8) k/uL Chloride 113 H (98-107) mmol/L Carbon Dioxide 21 L (22-30) mmol/L BUN 31 H (9-20) mg/dL Glucose 129 H (74-99) mg/dL POC Glucose (mg/dL) 151 H (70-110) mg/dL AST 63 H (17-59) U/L Total Protein 4.7 L (6.3-8.2) g/dL Albumin 2.5 L (3.5-5.0) g/dL Assessment and Plan Time with Patient: Less than 30
[2023-09-15 16:38] LABS: Glucose,Whole Blood 182 mg/dL (70-110)
[2023-09-15 20:16] LABS: Glucose,Whole Blood 191 mg/dL (70-110)
[2023-09-16] MEDS: traMADol 50 MG TAB PO PRN (05:14)
[2023-09-16 06:04] LABS: Glucose,Whole Blood 156 mg/dL (70-110)
--- NOTE | 2023-09-16 10:30 | P.PN ---
Subjective HISTORY OF PRESENT ILLNESS: This is a 82-year-old male with a past medical history significant for atrial fibrillation, hypertension, hyperlipidemia, diabetes, and coronary artery disease with previous CABG and subsequent stenting. Patient follows in the office with Dr. Smith. We have been asked to see the patient in consultation for surgical clearance. Patient examined at the bedside in the emergency room. Patient presented to the hospital after he sustained a mechanical fall yesterday at home. Patient states he was laying on the ground for approximately 45 minutes to 1 hour before he was able to get up. Patient was found to have a r ight nondisplaced femoral neck fracture. He is scheduled to undergo surgical intervention this afternoon. Patient currently denies any chest pain or pressure. He denies any shortness of breath. Vital signs are stable. DIAGNOSTICS: - EKG reveals atrial fibrillation with PVCs. Bedside telemetry reveals sinus mechanism with PACs. - Chest xray negative for acute process - Laboratory data: WBC 9.6. Hemoglobin 12.0. Platelet count 200. Sodium 143. Potassium 3.6. BUN 49. Creatinine 1.14. Magnesium 2.6. Bilirubin 1.8. AST 227. ALT 74. Creatinine kinase 4314. Troponin 0.800. 0.797. 0.807. - Current home cardiac medications include metoprolol tartrate 12.5 mg 3 times daily, Xarelto 15 mg daily, lisinoprilhydrochlorothiazide 20-25 mg daily, Lasix 40 mg in the morning and 20 mg at night, Lipitor 40 mg daily. - Most recent echocardiogram obtained in the office in February 2022 revealed EF 40%, mild aortic stenosis, mild MR, moderate MS - Cardiac catheterization history: 2013 with stenting of the [place] RCA 09/15/2023 Patient examined this morning in the intensive care unit. Patient currently denies chest pain or pressure. He denies shortness of breath. He is status postsurgical intervention for his hip fracture. He is maintaining sinus mechanism. 2D echo reveals ejection fraction 35 to 40%, moderate pulmonary hypertension, mild to moderate mitral regurgitation, centrally directed mitral regurgitation jet, mild mitral stenosis, mild aortic regurgitation, moderate tricuspid regurgitation PHYSICAL EXAM: VITAL SIGNS: Reviewed. GENERAL: Well-developed in no acute distress. HEENT: Head is normocephalic. Pupils are equal, round. Sclerae anicteric. Mucous membranes of the mouth are moist. Neck supple. No JVD or thyromegaly LUNGS: Respirations even and unlabored. Lungs essentially clear to auscultation bilaterally. HEART: Regular rate and rhythm. S1 and S2 heard. Systolic murmur noted. ABDOMEN: Soft. Nondistended. Nontender. EXTREMITIES: Normal range of motion. No clubbing or cyanosis. Peripheral pulses intact. Skin is noted to bilateral lower extremities. NEUROLOGIC: Awake and alert. ASSESSMENT: S/p mechanical fall with no evidence of syncope Right nondisplaced femoral neck fracture status post cannulated screw fixation of right hip valgus impacted femoral neck fracture Elevated troponins, flat, acute myocardial injury without ischemia, ACS ruled out Elevated creatinine kinase History of coronary artery disease with previous CABG in 1987 with subsequent stenting, most recently in 2013 Ischemic cardiomyopathy, ejection fraction 40% in 2021 Paroxysmal atrial fibrillation Bilateral lower extremity chronic wounds Hypertension Hyperlipidemia Diabetes PLAN: Continue current cardiac medications Continue telemetry monitoring Further recommendations pending patient course Nurse practitioner note has been reviewed by physician. Signing provider agrees with the documented findings, assessment, and plan of care documented by ENGINEERING EXECUTIVE as a scribe. Objective - Vital Signs Vital signs: Vital Signs Temp 98.5 F 09/16/23 04:12 Pulse 62 09/16/23 04:12 Resp 18 09/16/23 04:12 BP 169/56 09/16/23 04:12 Pulse Ox 95 09/16/23 04:12 FiO2 Intake & Output 09/15/23 09/16/23 09/16/23 18:59 06:59 18:59 Intake Total 120 Output Total 150 1100 Balance -30 -1100 Weight 75 kg Intake: Oral 120 Output: Urine 150 1100 Straight 1100 Other: Voiding Method Indwelling Catheter # Bowel Movements 1 - Labs CBC & Chem 7: 09/15/23 03:16 09/15/23 03:16 Labs: Abnormal Lab Results - Last 24 Hours (Table) 09/14/23 09/15/23 09/15/23 Range/Units 05:04 11:45 16:37 Hgb 8.8 L D (13.0-17.5) gm/dL POC Glucose (mg/dL) 277 H 182 H (70-110) mg/dL 09/15/23 09/16/23 Range/Units 20:15 06:03 Hgb (13.0-17.5) gm/dL POC Glucose (mg/dL) 191 H 156 H (70-110) mg/dL
--- NOTE | 2023-09-16 10:33 | P.PN ---
Subjective HISTORY OF PRESENT ILLNESS: This is a 82-year-old male with a past medical history significant for atrial fibrillation, hypertension, hyperlipidemia, diabetes, and coronary artery disease with previous CABG and subsequent stenting. Patient follows in the office with Dr. Smith. We have been asked to see the patient in consultation for surgical clearance. Patient examined at the bedside in the emergency room. Patient presented to the hospital after he sustained a mechanical fall yesterday at home. Patient states he was laying on the ground for approximately 45 minutes to 1 hour before he was able to get up. Patient was found to have a r ight nondisplaced femoral neck fracture. He is scheduled to undergo surgical intervention this afternoon. Patient currently denies any chest pain or pressure. He denies any shortness of breath. Vital signs are stable. DIAGNOSTICS: - EKG reveals atrial fibrillation with PVCs. Bedside telemetry reveals sinus mechanism with PACs. - Chest xray negative for acute process - Laboratory data: WBC 9.6. Hemoglobin 12.0. Platelet count 200. Sodium 143. Potassium 3.6. BUN 49. Creatinine 1.14. Magnesium 2.6. Bilirubin 1.8. AST 227. ALT 74. Creatinine kinase 4314. Troponin 0.800. 0.797. 0.807. - Current home cardiac medications include metoprolol tartrate 12.5 mg 3 times daily, Xarelto 15 mg daily, lisinoprilhydrochlorothiazide 20-25 mg daily, Lasix 40 mg in the morning and 20 mg at night, Lipitor 40 mg daily. - Most recent echocardiogram obtained in the office in February 2022 revealed EF 40%, mild aortic stenosis, mild MR, moderate MS - Cardiac catheterization history: 2013 with stenting of the [place] RCA 09/15/2023 Patient examined this morning in the intensive care unit. Patient currently denies chest pain or pressure. He denies shortness of breath. He is status postsurgical intervention for his hip fracture. He is maintaining sinus mechanism. 2D echo reveals ejection fraction 35 to 40%, moderate pulmonary hypertension, mild to moderate mitral regurgitation, centrally directed mitral regurgitation jet, mild mitral stenosis, mild aortic regurgitation, moderate tricuspid regurgitation 09/16/2023 Patient examined this morning at the bedside. Patient currently denies chest pain or pressure. He denies shortness of breath. He remains in sinus mechanism. Heart rates are on the lower side around 60. Patient apparently got confused overnight and ripped off his dressing. He is awaiting evaluation for discharge to [facility] PHYSICAL EXAM: VITAL SIGNS: Reviewed. GENERAL: Well-developed in no acute distress. HEENT: Head is normocephalic. Pupils are equal, round. Sclerae anicteric. Mucous membranes of the mouth are moist. Neck supple. No JVD or thyromegaly LUNGS: Respirations even and unlabored. Lungs essentially clear to auscultation bilaterally. HEART: Regular rate and rhythm. S1 and S2 heard. Systolic murmur noted. ABDOMEN: Soft. Nondistended. Nontender. EXTREMITIES: Normal range of motion. No clubbing or cyanosis. Peripheral pulses intact. Skin is noted to bilateral lower extremities. NEUROLOGIC: Awake and alert. ASSESSMENT: S/p mechanical fall with no evidence of syncope Right nondisplaced femoral neck fracture status post cannulated screw fixation of right hip valgus impacted femoral neck fracture Elevated troponins, flat, acute myocardial injury without ischemia, ACS ruled out Elevated creatinine kinase History of coronary artery disease with previous CABG in 1987 with subsequent stenting, most recently in 2013 Ischemic cardiomyopathy, ejection fraction 40% in 2021 Paroxysmal atrial fibrillation Bilateral lower extremity chronic wounds Hypertension Hyperlipidemia Diabetes PLAN: Continue current cardiac medications Decrease metoprolol to 12.5 mg twice a day Continue telemetry monitoring Further recommendations pending patient course Nurse practitioner note has been reviewed by physician. Signing provider agrees with the documented findings, assessment, and plan of care documented by BUDGET OFFICER as a scribe. Objective - Vital Signs Vital signs: Vital Signs Temp 98.5 F 09/16/23 04:12 Pulse 62 09/16/23 04:12 Resp 18 09/16/23 04:12 BP 169/56 09/16/23 04:12 Pulse Ox 95 09/16/23 04:12 FiO2 Intake & Output 09/15/23 09/16/23 09/16/23 18:59 06:59 18:59 Intake Total 120 240 Output Total 150 1100 Balance -30 -1100 240 Weight 75 kg Intake: Oral 120 240 Output: Urine 150 1100 Straight 1100 Other: Voiding Method Indwelling Catheter # Bowel Movements 1 - Labs CBC & Chem 7: 09/15/23 03:16 09/15/23 03:16 Labs: Abnormal Lab Results - Last 24 Hours (Table) 09/14/23 09/15/23 09/15/23 Range/Units 05:04 11:45 16:37 Hgb 8.8 L D (13.0-17.5) gm/dL POC Glucose (mg/dL) 277 H 182 H (70-110) mg/dL 09/15/23 09/16/23 Range/Units 20:15 06:03 Hgb (13.0-17.5) gm/dL POC Glucose (mg/dL) 191 H 156 H (70-110) mg/dL
--- NOTE | 2023-09-16 10:55 | P.PN ---
Subjective Progress Note Date: 09/16/23 This is an 82-year-old white male who presented to the hospital with impacted femoral neck fracture. Patient underwent cannulated screw fixation of the right hip valgus impacted femoral neck fracture. Postoperative day #1. However while in the recovery yesterday, patient developed atrial fibrillation with RVR, I was notified about this patient for an ICU bed, hence the patient was accepted to the ICU from recovery. Prior to surgery, patient already had atrial fibrillation which was managed by cardiology and apparently the rate was controlled prior to surgery. Patient is known to have hypertension, chronic paroxysmal atrial fibrillation, dyslipidemia, diabetes, coronary artery disease and previous CABG and subsequent stenting. Patient was cleared for surgery by cardiology. Today during my evaluation, patient is on room air, not in any distress, apparently he was hypotensive yesterday requiring Fernando-Synephrine which has been discontinued since 11 PM last night. Patient is on Cardizem at 5 mg/h. Remains in atrial fibrillation with intermittent episodes of of RVR again clinically however the patient is not symptomatic. Denies any shortness of breath denies any chest pain, denies even palpitations labs today showed WBC count of 7 hemoglobin 8.8 electrolytes are normal except for slightly low potassium of 3.4. BUN of 34 creatinine 1.0 The patient is seen today September 15, 2023 in follow-up in the intensive care unit. He is currently awake and alert in no acute distress. He is maintaining good O2 saturations in the 90s on room air. He has been afebrile. Hemodynamically stable. He remains in atrial fibrillation with a controlled ventricular rate. White count 5.4. Hemoglobin 8.7. Platelets 169. Sodium 137. Potassium 4.3. Bicarb 21. BUN 31. Creatinine 1.03. Glucose 129. He is anticoagulated with Xarelto. Remains on oral diuretics. Right leg dressing is dry and intact. Pain is well-controlled. The patient is seen today September 16, 2023 in follow-up on the selective care unit. He is currently sitting up in bed. He is awake and alert in no acute distress. Maintaining good O2 saturations in the mid 90s on room air. He is afebrile. Hemodynamically stable. Glucose 156. His pain is well-controlled. He remains on oral diuretics. Anticoagulated with Xarelto. Objective - Vital Signs Vital signs: Vital Signs Temp 97.8 F 09/16/23 08:10 Pulse 86 09/16/23 08:10 Resp 18 09/16/23 08:10 BP 135/58 09/16/23 08:10 Pulse Ox 96 09/16/23 08:10 FiO2 Intake & Output 09/15/23 09/16/23 09/16/23 18:59 06:59 18:59 Intake Total 120 240 Output Total 150 1100 Balance -30 -1100 240 Weight 75 kg Intake: Oral 120 240 Output: Urine 150 1100 Straight 1100 Other: Voiding Method Indwelling Catheter Indwelling Catheter # Bowel Movements 1 - Exam GENERAL EXAM: Alert, pleasant 82-year-old male on room air, comfortable in no apparent distress. HEAD: Normocephalic. EYES: Normal reaction of pupils, equal size. NOSE: Clear with pink turbinates. THROAT: No erythema or exudates. NECK: No masses, no JVD. CHEST: No chest wall deformity. LUNGS: Equal air entry with no crackles, wheeze, rhonchi or dullness. CVS: S1 and S2 normal with no audible murmur, irregular rhythm. ABDOMEN: No hepatosplenomegaly, normal bowel sounds, no guarding or rigidity. SPINE: No scoliosis or deformity SKIN: No rashes CENTRAL NERVOUS SYSTEM: No focal deficits, tone is normal in all 4 extremities. EXTREMITIES: Right leg dressing is dry and intact. Minimal ecchymosis and bruising. There is 1+ peripheral edema. No clubbing, no cyanosis. Peripheral pulses are intact. - Labs CBC & Chem 7: 09/15/23 03:16 09/15/23 03:16 Labs: Abnormal Lab Results - Last 24 Hours (Table) 09/14/23 09/15/23 09/15/23 Range/Units 05:04 11:45 16:37 Hgb 8.8 L D (13.0-17.5) gm/dL POC Glucose (mg/dL) 277 H 182 H (70-110) mg/dL 09/15/23 09/16/23 Range/Units 20:15 06:03 Hgb (13.0-17.5) gm/dL POC Glucose (mg/dL) 191 H 156 H (70-110) mg/dL Assessment and Plan Assessment: Status post cannulated screw fixation of right hip valgus impacted femoral neck fracture, postoperative day #3 Paroxysmal atrial fibrillation with RVR, even prior to surgical intervention. Hence postoperative atrial fibrillation with RVR was expected and not related to surgery. Currently in a controlled ventricular rate Essential hypertension Dyslipidemia Type 2 diabetes without complications History of underlying coronary artery disease previous CABG 1987 and subsequent stenting in 2013 Status post mechanical fall, no evidence of syncope Plan: The patient was seen and evaluated Medications reviewed Stable and on room air Ventricular rate is controlled Anticoagulated with Xarelto Plan is for subacute rehab at discharge This patient was seen independently by the pulmonary/critical care nurse practitioner I have personally seen and examined the patient, performed the documentation and the assessment and plan as written. Number of minutes spent on the visit: 22.
[2023-09-16 11:30] LABS: Glucose,Whole Blood 279 mg/dL (70-110)
[2023-09-16] MEDS ORDERED: DOCUSATE 100 MG CAP PO PRN (11:45)
--- NOTE | 2023-09-16 12:06 | P.PN ---
Subjective Progress Note Date: 09/16/23 Principal diagnosis: Right femoral neck fracture, A-fib with RVR, acute blood loss anemia Patient was evaluated today at bedside, he has been transferred to the cardiac stepdown unit. Patient's granddaughter is present at bedside. He is looking forward to working with physical therapy today. Currently denies any headaches, lightheadedness, chest pain or shortness of breath Objective - Vital Signs Vital signs: Vital Signs Temp 97.8 F 09/16/23 08:10 Pulse 86 09/16/23 08:10 Resp 18 09/16/23 08:10 BP 135/58 09/16/23 08:10 Pulse Ox 96 09/16/23 08:10 FiO2 Intake & Output 09/15/23 09/16/23 09/16/23 18:59 06:59 18:59 Intake Total 120 240 Output Total 150 1100 Balance -30 -1100 240 Weight 75 kg Intake: Oral 120 240 Output: Urine 150 1100 Straight 1100 Other: Voiding Method Indwelling Catheter Indwelling Catheter # Bowel Movements 1 - Exam Right lower extremity: Foam dressing is in good position and condition. There is minimal soft tissue swelling and ecchymosis surrounding the medial and lateral aspects of the incision. Calf is soft, no tenderness with palpation. Plantar flexion, dorsiflexion, EHL, FHL are intact. Sensory exam to light touch throughout the extremity is intact, dorsal pedis pulses 2+. - Labs CBC & Chem 7: 09/15/23 03:16 09/15/23 03:16 Labs: Abnormal Lab Results - Last 24 Hours (Table) 09/15/23 09/15/23 09/16/23 Range/Units 16:37 20:15 06:03 POC Glucose (mg/dL) 182 H 191 H 156 H (70-110) mg/dL 09/16/23 Range/Units 11:29 POC Glucose (mg/dL) 279 H (70-110) mg/dL Assessment and Plan Assessment: Postoperative day #3 status post closed reduction with percutaneous screws right femoral neck fracture Acute blood loss anemia, expected surgical outcome A-fib with RVR Multiple medical comorbidities Plan: Pain control, continue with current medications DVT prophylaxis, continue current medication Weight-bear as tolerated with walker PT/OT evaluation Awaiting wound care consult for left heel recommendations Ferrous sulfate 325 mg twice daily for anemia Other medical recommendations appreciated Discharge planning: Orthopedically patient remains stable for follow-up in the outpatient setting, he will be likely discharged to subacute rehab in the next 24-48 hours Time with Patient: Less than 30
--- NOTE | 2023-09-16 16:11 | P.PN ---
Subjective Progress Note Date: 09/16/23 - History of Present Illness 82-year-old male had a mechanical fall and had a nondisplaced right femoral neck fracture. Patient is not having any significant pain patient has multiple medical issues including atrial fibrillation congestive heart failure systolic function of 40% hypertension and coronary artery disease. Patient has mild elevated troponins up 0.8-0.79 0.80 mostly flat patient does not have any chest pain echocardiogram was ordered cardiology evaluated for clearance. Patient is high operative risk for surgery as this is an urgent surgery patient still should pursue surgery. Same thing was explained to the patient explained and patient wanted to go get the surgery done as soon as possible. Patient is presently hypovolemic and does have acute renal failure patient creatinine is 1 .9 with baseline creatinine is around 0.9 and patient is also hypotensive because of which antihypertensive medications are being held. 09/14/2023 Patient is seen and evaluated in follow-up in the ICU and is status post screw fixation of the right hip impacted femoral neck fracture postop day #1. 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 Patient is being resumed on Xarelto and also Cardizem drip is being discontinued. Patient's mentation is much improved and patient is alert and oriented x 3. Patient currently sitting up in the chair reporting minimal discomfort in the right hip. Surgical site is dry and intact and patient reports to feeling weak. PT/OT therapy to evaluate as patient may require ECF on discharge for continued strength and mobility. Patient does live alone at home with his dog and was ambulatory and independent prior to this. Patient is being considered a transfer out of the ICU today once a bed becomes available. Guarded prognosis. Will continue gentle hydration and follow-up with repeat labs as patient appears to be mildly dehydrated. Monitor closely as patient does have history of heart failure. 09/15/2023 Patient is evaluated today on the cardiac stepdown unit,he was downgraded from the ICU. He is postoperative day#2 right hip arthroplasty. He reports minimal pain to the right hip. Getting up to the chair. Patient is currently off IV cardizem gtt at this time and currently rate controlled remains in atrial fibrillation. Echocardiogram comes back showing EF 35-40% and grade 2 diastolic dysfunction, mild aortic stenosis, mild to moderate mitral regurgitation, moderate TR, mild mitral stenosis. He is pending PT evaluation for discharge planning. White blood cell count 5.4, hgb 8.7, sodium 137, potassium 4.3, BUN 31, creatinine 1.03, liver enzymes significantly improved. Hemodynamically he is stable. 09/16/2023 Patient evaluated in follow up resting in bed. He is postoperative day #3 right hip arthroplasty surgical dressing in place and no significant swelling or bruising. Patient remains in atrial fibrillation rate controlled. Metoprolol has been decreased to 12.5 mg BID. Review of systems: Constitutional: No reports of fatigue, fever, or chills Cardiovascular: No reports of chest pain or palpitations Respiratory: No reports of shortness of breath or cough GI: No reports of nausea, vomiting, or diarrhea : No reports of dysuria or retention Neurovascular: reports of generalized weakness some minimal right hip discomfort All medications have been reviewed PHYSICAL EXAMINATION: GENERAL: The patient is alert and oriented x3, currently sitting up in the chair not in any acute distress. Well developed, well nourished. HEENT: Pupils are round and equally reacting to light. EOMI. No scleral icterus. No conjunctival pallor. Normocephalic, atraumatic. No pharyngeal erythema. No thyromegaly. CARDIOVASCULAR: S1 and S2 muffled, irregular, currently rate controlled PULMONARY: Chest is clear to auscultation, no wheezing or crackles. ABDOMEN: Soft, nontender, nondistended, normoactive bowel sounds. No palpable organomegaly. MUSCULOSKELETAL: Deferred to orthopedic surgery. EXTREMITIES: No cyanosis, clubbing, or pedal edema. NEUROLOGICAL: Gross neurological examination did not reveal any focal deficits. Diffusely weak SKIN: No rashes. Assessment: -Preoperative clearance for right hip fracture: Patient is considered high operative risk for surgery and is status post screw fixation of the right hip due to an impacted femoral fracture from a fall, postop day 3 -Atrial fibrillation with RVR, currently rate controlled and being discontinued off Cardizem drip, Xarelto resumed, cardiology following -Congestive heart failure chronic systolic function and diastolic function without any acute exacerbation resumed on oral Lasix with close monitoring for heart failure exacerbation -Troponin elevation probably chronic and secondary to acute renal failure and congestive heart failure -Acute renal failure prerenal azotemia secondary to hypovolemia: recovered. -Hypertension patient was hypotensive and maintained on low-dose pressor support, currently off pressors -Hyperlipidemia -Hypertension -Coronary artery disease -GI prophylaxis -DVT prophylaxis: As per primary service and patient is on Xarelto and being resumed -Full code Plan: Patient has been transferred out of the ICU. He is on the steop down unit. Patient was evaluated by cardiology for atrial fibrillation with RVR currently rate controlled and Cardizem is being discontinued. Patient being resumed on Xarelto and also adjusted to medications. Continue telemetry monitoring Encourage incentive spirometer use at least 10 times every hour while awake Encourage oral intake and follow-up on repeat labs. Replace electrolytes per protocol Orthopedics will continue following and medical service taking over for admitting and attending Awaiting PT/OT therapy evaluation and patient will most likely require ECF for continued strength and mobility. Patient was independent prior to this fall and currently lives home alone Consult to case management/social work for discharge planning The impression and plan of care has been dictated by Margret Buchanan Nurse Practitioner as directed. Dr. Reanna MD I have performed a history and physical examination and medical decision making of this patient, discussed the same with the dictator, and agree with the dictators assessment and plan as written, documented as a scribe. Based on total visit time, I have performed more than 50% of this visit. Objective - Vital Signs Vital signs: Vital Signs Temp 98.5 F 09/16/23 04:12 Pulse 62 09/16/23 04:12 Resp 18 09/16/23 04:12 BP 169/56 09/16/23 04:12 Pulse Ox 95 09/16/23 04:12 FiO2 Intake & Output 09/15/23 09/16/23 09/16/23 18:59 06:59 18:59 Intake Total 120 Output Total 150 1100 Balance -30 -1100 Weight 75 kg Intake: Oral 120 Output: Urine 150 1100 Straight 1100 Other: Voiding Method Indwelling Catheter # Bowel Movements 1 - Labs CBC & Chem 7: 09/15/23 03:16 09/15/23 03:16 Labs: Abnormal Lab Results - Last 24 Hours (Table) 09/14/23 09/15/23 09/15/23 Range/Units 05:04 11:45 16:37 Hgb 8.8 L D (13.0-17.5) gm/dL POC Glucose (mg/dL) 277 H 182 H (70-110) mg/dL 09/15/23 09/16/23 Range/Units 20:15 06:03 Hgb (13.0-17.5) gm/dL POC Glucose (mg/dL) 191 H 156 H (70-110) mg/dL Assessment and Plan Time with Patient: Less than 30
[2023-09-16 16:23] LABS: Glucose,Whole Blood 217 mg/dL (70-110)
[2023-09-16 20:27] LABS: Glucose,Whole Blood 221 mg/dL (70-110)
[2023-09-16] MEDS: METOPROLOL TARTRATE 12.5 MG TAB PO SCH (22:01)
[2023-09-17 06:07] LABS: Glucose,Whole Blood 170 mg/dL (70-110)
[2023-09-17 08:39] LABS: African American GFR (CKD) 88 (>60 ml/min/1.73 sqM); Anion Gap 2 mmol/L; Blood Urea Nitrogen 26 mg/dL (9-20); Calcium 8.7 mg/dL (8.4-10.2); Carbon Dioxide 24 mmol/L (22-30); Chloride 111 mmol/L (98-107); Glucose 219 mg/dL (74-99); Non-African American GFR(CKD) 76 (>60 ml/min/1.73 sqM); Potassium 3.7 mmol/L (3.5-5.1); Sodium 137 mmol/L (137-145)
[2023-09-17 08:42] LABS: Basophils % (A) 0 %; Eosinophils # (A) 0.3 k/uL (0-0.7); Eosinophils % (A) 5 %; HGB 8.7 gm/dL (13.0-17.5); Lymphocytes # (A) 0.9 k/uL (1.0-4.8); Lymphocytes % (A) 14 %; MCH 31.2 pg (25.0-35.0); MCHC 32.1 g/dL (31.0-37.0); MCV 97.3 fL (80.0-100.0); Mean Platelet Volume 8.2; Monocytes # (A) 0.3 k/uL (0-1.0); Monocytes % (A) 5 %; Neutrophils # (A) 4.8 k/uL (1.3-7.7); Neutrophils % (A) 74 %; Platelet Count 235 k/uL (150-450); RBC 2.77 m/uL (4.30-5.90); RDW 13.7 % (11.5-15.5); WBC 6.5 k/uL (3.8-10.6)
[2023-09-17 11:37] LABS: Glucose,Whole Blood 236 mg/dL (70-110)
--- NOTE | 2023-09-17 14:32 | P.PN ---
Subjective Progress Note Date: 09/17/23 - History of Present Illness 82-year-old male had a mechanical fall and had a nondisplaced right femoral neck fracture. Patient is not having any significant pain patient has multiple medical issues including atrial fibrillation congestive heart failure systolic function of 40% hypertension and coronary artery disease. Patient has mild elevated troponins up 0.8-0.79 0.80 mostly flat patient does not have any chest pain echocardiogram was ordered cardiology evaluated for clearance. Patient is high operative risk for surgery as this is an urgent surgery patient still should pursue surgery. Same thing was explained to the patient explained and patient wanted to go get the surgery done as soon as possible. Patient is presently hypovolemic and does have acute renal failure patient creatinine is 1 .9 with baseline creatinine is around 0.9 and patient is also hypotensive because of which antihypertensive medications are being held. 09/14/2023 Patient is seen and evaluated in follow-up in the ICU and is status post screw fixation of the right hip impacted femoral neck fracture postop day #1. 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 Patient is being resumed on Xarelto and also Cardizem drip is being discontinued. Patient's mentation is much improved and patient is alert and oriented x 3. Patient currently sitting up in the chair reporting minimal discomfort in the right hip. Surgical site is dry and intact and patient reports to feeling weak. PT/OT therapy to evaluate as patient may require ECF on discharge for continued strength and mobility. Patient does live alone at home with his dog and was ambulatory and independent prior to this. Patient is being considered a transfer out of the ICU today once a bed becomes available. Guarded prognosis. Will continue gentle hydration and follow-up with repeat labs as patient appears to be mildly dehydrated. Monitor closely as patient does have history of heart failure. 09/15/2023 Patient is evaluated today on the cardiac stepdown unit,he was downgraded from the ICU. He is postoperative day#2 right hip arthroplasty. He reports minimal pain to the right hip. Getting up to the chair. Patient is currently off IV cardizem gtt at this time and currently rate controlled remains in atrial fibrillation. Echocardiogram comes back showing EF 35-40% and grade 2 diastolic dysfunction, mild aortic stenosis, mild to moderate mitral regurgitation, moderate TR, mild mitral stenosis. He is pending PT evaluation for discharge planning. White blood cell count 5.4, hgb 8.7, sodium 137, potassium 4.3, BUN 31, creatinine 1.03, liver enzymes significantly improved. Hemodynamically he is stable. 09/16/2023 Patient evaluated in follow up resting in bed. He is postoperative day #3 right hip arthroplasty surgical dressing in place and no significant swelling or bruising. Patient remains in atrial fibrillation rate controlled. Metoprolol has been decreased to 12.5 mg BID. 09/17/2023 Patient is evaluated in follow-up sitting up in the chair with no acute complaints. He is postoperative day #4 right hip arthroplasty. Patient is in atrial fibrillation with rate controlled. He remains on oral lasix 40 mg daily. Patient has been resumed on xarelto. Remained stable at 8.7. BUN of 26, creatinine 0.92. Review of systems: Constitutional: No reports of fatigue, fever, or chills Cardiovascular: No reports of chest pain or palpitations Respiratory: No reports of shortness of breath or cough GI: No reports of nausea, vomiting, or diarrhea : No reports of dysuria or retention Neurovascular: reports of generalized weakness some minimal right hip discomfort All medications have been reviewed PHYSICAL EXAMINATION: GENERAL: The patient is alert and oriented x3, currently sitting up in the chair not in any acute distress. Well developed, well nourished. HEENT: Pupils are round and equally reacting to light. EOMI. No scleral icterus. No conjunctival pallor. Normocephalic, atraumatic. No pharyngeal erythema. No thyromegaly. CARDIOVASCULAR: S1 and S2 muffled, irregular, currently rate controlled PULMONARY: Chest is clear to auscultation, no wheezing or crackles. ABDOMEN: Soft, nontender, nondistended, normoactive bowel sounds. No palpable organomegaly. MUSCULOSKELETAL: Deferred to orthopedic surgery. EXTREMITIES: No cyanosis, clubbing, or pedal edema. Surgical dressing inplace to the right hip. NEUROLOGICAL: Gross neurological examination did not reveal any focal deficits. Diffusely weak SKIN: No rashes. Assessment: -Preoperative clearance for right hip fracture: Patient is considered high operative risk for surgery and is status post screw fixation of the right hip due to an impacted femoral fracture from a fall, postop day 4 -Atrial fibrillation with RVR, currently rate controlled and being discontinued off Cardizem drip, Xarelto resumed, cardiology following -Congestive heart failure chronic systolic function and diastolic function without any acute exacerbation resumed on oral Lasix with close monitoring for heart failure exacerbation -Troponin elevation probably chronic and secondary to acute renal failure and congestive heart failure -Acute renal failure prerenal azotemia secondary to hypovolemia: recovered. -Hypertension patient was hypotensive and maintained on low-dose pressor support, currently off pressors -Hyperlipidemia -Hypertension -Coronary artery disease -GI prophylaxis -DVT prophylaxis: As per primary service and patient is on Xarelto and being resumed -Full code Plan: Patient was evaluated by cardiology for atrial fibrillation with RVR currently rate controlled and Cardizem is being discontinued. Patient being resumed on Xarelto, Continue telemetry monitoring Encourage incentive spirometer use at least 10 times every hour while awake Encourage oral intake and follow-up on repeat labs. Replace electrolytes per protocol Orthopedics will continue following and medical service taking over for admitting and attending Awaiting PT/OT therapy evaluation and patient will most likely require ECF for continued strength and mobility. Patient was independent prior to this fall and currently lives home alone Consult to case management/social work for discharge planning currently pending authorization for discharge to subacute rehab Next 24-48 hours The impression and plan of care has been dictated by Margret Buchanan Nurse Practitioner as directed. Dr. Reanna MD I have performed a history and physical examination and medical decision making of this patient, discussed the same with the dictator, and agree with the dictators assessment and plan as written, documented as a scribe. Based on total visit time, I have performed more than 50% of this visit. Objective - Vital Signs Vital signs: Vital Signs Temp 97.8 F 09/17/23 09:09 Pulse 63 09/17/23 09:09 Resp 16 09/17/23 09:09 BP 133/55 09/17/23 09:09 Pulse Ox 94 L 09/17/23 09:09 FiO2 Intake & Output 09/16/23 09/17/23 09/17/23 18:59 06:59 18:59 Intake Total 476 10 Output Total 2300 600 Balance -1484 -590 Weight 74 kg Intake: IV 10 Invasive Line 5 10 Oral 476 Output: Urine 2300 600 Uretheral (Yeager) 700 300 Other: Voiding Method Indwelling Catheter Indwelling Catheter Indwelling Catheter # Bowel Movements 1 - Labs CBC & Chem 7: 09/17/23 07:47 09/17/23 07:47 Labs: Abnormal Lab Results - Last 24 Hours (Table) 09/16/23 09/16/23 09/17/23 Range/Units 16:22 20:25 06:05 RBC (4.30-5.90) m/uL Hgb (13.0-17.5) gm/dL Hct (39.0-53.0) % Lymphocytes # (1.0-4.8) k/uL Chloride (98-107) mmol/L BUN (9-20) mg/dL Glucose (74-99) mg/dL POC Glucose (mg/dL) 217 H 221 H 170 H (70-110) mg/dL 09/17/23 09/17/23 09/17/23 Range/Units 07:47 07:47 11:35 RBC 2.77 L (4.30-5.90) m/uL Hgb 8.7 L (13.0-17.5) gm/dL Hct 27.0 L (39.0-53.0) % Lymphocytes # 0.9 L (1.0-4.8) k/uL Chloride 111 H (98-107) mmol/L BUN 26 H (9-20) mg/dL Glucose 219 H (74-99) mg/dL POC Glucose (mg/dL) 236 H (70-110) mg/dL
--- NOTE | 2023-09-17 15:13 | P.PN ---
Subjective HISTORY OF PRESENT ILLNESS: This is a 82-year-old male with a past medical history significant for atrial fibrillation, hypertension, hyperlipidemia, diabetes, and coronary artery disease with previous CABG and subsequent stenting. Patient follows in the office with Dr. Smith. We have been asked to see the patient in consultation for surgical clearance. Patient examined at the bedside in the emergency room. Patient presented to the hospital after he sustained a mechanical fall yesterday at home. Patient states he was laying on the ground for approximately 45 minutes to 1 hour before he was able to get up. Patient was found to have a r ight nondisplaced femoral neck fracture. He is scheduled to undergo surgical intervention this afternoon. Patient currently denies any chest pain or pressure. He denies any shortness of breath. Vital signs are stable. DIAGNOSTICS: - EKG reveals atrial fibrillation with PVCs. Bedside telemetry reveals sinus mechanism with PACs. - Chest xray negative for acute process - Laboratory data: WBC 9.6. Hemoglobin 12.0. Platelet count 200. Sodium 143. Potassium 3.6. BUN 49. Creatinine 1.14. Magnesium 2.6. Bilirubin 1.8. AST 227. ALT 74. Creatinine kinase 4314. Troponin 0.800. 0.797. 0.807. - Current home cardiac medications include metoprolol tartrate 12.5 mg 3 times daily, Xarelto 15 mg daily, lisinoprilhydrochlorothiazide 20-25 mg daily, Lasix 40 mg in the morning and 20 mg at night, Lipitor 40 mg daily. - Most recent echocardiogram obtained in the office in February 2022 revealed EF 40%, mild aortic stenosis, mild MR, moderate MS - Cardiac catheterization history: 2013 with stenting of the new [place] RCA 09/15/2023 Patient examined this morning in the intensive care unit. Patient currently denies chest pain or pressure. He denies shortness of breath. He is status postsurgical intervention for his hip fracture. He is maintaining sinus mechanism. 2D echo reveals ejection fraction 35 to 40%, moderate pulmonary hypertension, mild to moderate mitral regurgitation, centrally directed mitral regurgitation jet, mild mitral stenosis, mild aortic regurgitation, moderate tricuspid regurgitation 09/16/2023 Patient examined this morning at the bedside. Patient currently denies chest pain or pressure. He denies shortness of breath. He remains in sinus mechanism. Heart rates are on the lower side around 60. Patient apparently got confused overnight and ripped off his dressing. He is awaiting evaluation for discharge to ECF 09/16 Patient seen and examined. Denies any chest pain or pressure. Feeling OK. Afib with CVR. No lightheadedness, PHYSICAL EXAM: VITAL SIGNS: Reviewed. GENERAL: Well-developed in no acute distress. HEENT: Head is normocephalic. Pupils are equal, round. Sclerae anicteric. Mucous membranes of the mouth are moist. Neck supple. No JVD or thyromegaly LUNGS: Respirations even and unlabored. Lungs essentially clear to auscultation bilaterally. HEART: Regular rate and rhythm. S1 and S2 heard. Systolic murmur noted. ABDOMEN: Soft. Nondistended. Nontender. EXTREMITIES: Normal range of motion. No clubbing or cyanosis. Peripheral p ulses intact. Skin is noted to bilateral lower extremities. NEUROLOGIC: Awake and alert. ASSESSMENT: S/p mechanical fall with no evidence of syncope Right nondisplaced femoral neck fracture status post cannulated screw fixation of right hip valgus impacted femoral neck fracture Elevated troponins, flat, acute myocardial injury without ischemia, ACS ruled out Elevated creatinine kinase History of coronary artery disease with previous CABG in 1987 with subsequent stenting, most recently in 2013 Ischemic cardiomyopathy, ejection fraction 40% in 2021 Paroxysmal atrial fibrillation Bilateral lower extremity chronic wounds Hypertension Hyperlipidemia Diabetes PLAN: Continue current cardiac medications Continue with anticoagulation Appears stable for DC to ECF when able. Objective - Vital Signs Vital signs: Vital Signs Temp 97.5 F L 09/17/23 14:00 Pulse 76 09/17/23 14:00 Resp 16 09/17/23 14:00 BP 137/48 09/17/23 14:00 Pulse Ox 94 L 09/17/23 14:00 FiO2 Intake & Output 09/16/23 09/17/23 09/17/23 18:59 06:59 18:59 Intake Total 476 10 Output Total 2300 600 Balance -1824 -590 Weight 74 kg Intake: IV 10 Invasive Line 5 10 Oral 476 Output: Urine 2300 600 Uretheral (Yeager) 700 300 Other: Voiding Method Indwelling Catheter Indwelling Catheter Indwelling Catheter # Bowel Movements 1 - Labs CBC & Chem 7: 09/17/23 07:47 09/17/23 07:47 Labs: Abnormal Lab Results - Last 24 Hours (Table) 07/09/16/23 09/17/23 Range/Units 16:22 20:25 06:05 RBC (4.30-5.90) m/uL Hgb (13.0-17.5) gm/dL Hct (39.0-53.0) % Lymphocytes # (1.0-4.8) k/uL Chloride (98-107) mmol/L BUN (9-20) mg/dL Glucose (74-99) mg/dL POC Glucose (mg/dL) 217 H 221 H 170 H (70-110) mg/dL 09/17/23 09/17/23 09/17/23 Range/Units 07:47 07:47 11:35 RBC 2.77 L (4.30-5.90) m/uL Hgb 8.7 L (13.0-17.5) gm/dL Hct 27.0 L (39.0-53.0) % Lymphocytes # 0.9 L (1.0-4.8) k/uL Chloride 111 H (98-107) mmol/L BUN 26 H (9-20) mg/dL Glucose 219 H (74-99) mg/dL POC Glucose (mg/dL) 236 H (70-110) mg/dL
[2023-09-17 16:18] LABS: Glucose,Whole Blood 276 mg/dL (70-110)
[2023-09-17 20:54] LABS: Glucose,Whole Blood 147 mg/dL (70-110)
[2023-09-17] MEDS: ACETAMINOPHEN TAB 325 MG TAB PO PRN (22:06)
[2023-09-18 06:14] LABS: Glucose,Whole Blood 146 mg/dL (70-110)
[2023-09-18 08:23] VITALS: RESP 17
--- NOTE | 2023-09-18 10:10 | P.DS ---
Providers Date of admission: 09/12/23 17:09 Attending physician: Yaron Forte Consults: 09/12/23 17:06 Consult Physician Routine Consulting Provider: Gay Evans Consult Reason/Comments: medical Management Do you want consulting provider notified?: Already Contacted Consult Physician Routine Consulting Provider: Sahil Glover Consult Reason/Comments: Cardiac clearance for right femoral neck fracture, elevated troponin Do you want consulting provider notified?: Yes 09/14/23 09:47 Consult Physician Routine Consulting Provider: Geo Baugh Consult Reason/Comments: Left heel wound Do you want consulting provider notified?: Yes Primary care physician: Linda Ramos Hospital Course: Final Diagnosis -Preoperative clearance for right hip fracture: Patient is considered high operative risk for surgery and is status post screw fixation of the right hip due to an impacted femoral fracture from a fall, postop day 5 -Atrial fibrillation with RVR, currently rate controlled and being discontinued off Cardizem drip, Xarelto resumed, cardiology following -Congestive heart failure chronic systolic function and diastolic function wi thout any acute exacerbation resumed on oral Lasix with close monitoring for heart failure exacerbation -Troponin elevation probably chronic and secondary to acute renal failure and congestive heart failure -Acute renal failure prerenal azotemia secondary to hypovolemia: recovered. -Hypertension patient was hypotensive and maintained on low-dose pressor support, currently off pressors -Hyperlipidemia -Hypertension -Coronary artery disease Discharge Disposition Stable for discharge to subacute rehab. Will continue on oral anticoagulation and oral metoprolol heart rate remains controlled and he remains in atrial fibrillation. Patient will continue [place] 5 mg every 6 hours as needed for pain as well as continue bowel regimen with Senokot twice a day as needed. Patient will continue on oral Lasix 40 mg daily as well as continue on oral metoprolol. Patient will be continued on xarelto 20 mg daily. Hospital Course 82-year-old male had a mechanical fall and had a nondisplaced right femoral neck fracture. Has medical history of atrial fibrillation, congestive heart failure systolic function of 40%, hypertension, and coronary artery disease. Patient has mild elevated troponins up 0.8-0.79 0.80 mostly flat patient does not have any chest pain. Patient is high operative risk for surgery as this is an urgent surgery patient still should pursue surgery. Same thing was explained to the patient explained and patient wanted to go get the surgery done as soon as possible. Patient is presently hypovolemic and does have acute renal failure patient creatinine is 1.9 with baseline creatinine is around 0.9 and patient is also hypotensive on admission and antihypertensives were held. Had an echocardiogram done for cardiac clearance for hip surgery; echocardiogram reveals an ejection fraction of 35 to 40% with grade 2 diastolic dysfunction. Patient has moderate to severely dilated left atrium, mild mitral stenosis, severe mitral calcification, mild to moderate mitral regurgitation, mild aortic stenosis and moderate tricuspid regurgitation. As mentioned was cleared for surgery with high risk. screw fixation of the right hip impacted femoral neck fracture. Multiple medical consultations including pulmonary structural manager, orthopedics, cardiology following. Was atrial fibrillation with RVR, Patient is being resumed on Xarelto. He was on IV cardizem for atrial fibrillation with RVR. He is now rate controlled. Patient's mentation is much improved and patient is alert and oriented x 3. Transferred out of the intensive care unit where he was initially monitored postoperative. Taken off of the Cardizem and currently on oral metoprolol resumed on oral Lasix daily. His heart rate remains controlled and he is not having shortness of breath or chest pain. He reports minimal pain to the right hip surgical site. Blood reveals a white blood cell count of 6.5, hemoglobin 8.7, sodium 137, potassium 3.7, BUN 26, creatinine 2.92. Hemodynamically he is stable he will be discharged to subacute rehab. Please see medication reconciliation for a list of current medications. Thank you for allowing us to participate in the care of this patient. The impression and plan of care has been dictated by Margret Buchanan, Nurse Practitioner as directed. Dr. Reanna MD I have performed a history and physical examination and medical decision making of this patient, discussed the same with the dictator, and agree with the dictators assessment and plan as written, documented as a scribe. Based on total visit time, I have performed more than 50% of this visit. Patient Condition at Discharge: Stable Plan - Discharge Summary Discharge Rx Participant: Yes New Discharge Prescriptions: New Ferrous Sulfate [Iron (65 MG Elemental)] 325 mg PO BID #60 tab HYDROcodone/APAP 5-325MG [[place] 5-325] 1 tab PO Q6HR PRN #18 tab PRN Reason: Pain Metoprolol Tartrate [Lopressor] 12.5 mg PO BID tab Sennosides/Docusate Sodium [Senna-S 8.6-50 mg Tablet] 2 each PO DAILY PRN #30 tablet PRN Reason: Constipation Furosemide [Lasix] 40 mg PO DAILY tab Acetaminophen Tab [Tylenol] 650 mg PO Q6HR PRN tab PRN Reason: Mild Pain Or Fever > 100.5 Rivaroxaban [Xarelto] 20 mg PO W/SUPPER tab Continue Isosorbide Mononitrate [Isosorbide Mononitrate ER] 30 mg PO DAILY Atorvastatin [Lipitor] 40 mg PO DAILY Lisinopril-Hctz 20-25 mg [Zestoretic 20-25] 1 tab PO DAILY glyBURIDE, MICRONIZED [Glynase] 3 mg PO DAILY glyBURIDE,MICRONIZED [Glynase] 1.5 mg PO HS Discontinued Furosemide [Lasix] 40 mg PO DAILY Furosemide [Lasix] 20 mg PO HS Metoprolol Tartrate [Lopressor] 12.5 mg PO TID Rivaroxaban [Xarelto] 15 mg PO DAILY Discharge Medication List Atorvastatin [Lipitor] 40 mg PO DAILY 05/27/15 [History] Isosorbide Mononitrate [Isosorbide Mononitrate ER] 30 mg PO DAILY 05/27/15 [History] Lisinopril-Hctz 20-25 mg [Zestoretic 20-25] 1 tab PO DAILY 05/27/15 [History] glyBURIDE, MICRONIZED [Glynase] 3 mg PO DAILY 09/12/23 [History] glyBURIDE,MICRONIZED [Glynase] 1.5 mg PO HS 09/12/23 [History] Acetaminophen Tab [Tylenol] 650 mg PO Q6HR PRN tab 09/17/23 [Rx] Ferrous Sulfate [Iron (65 MG Elemental)] 325 mg PO BID #60 tab 09/17/23 [Rx] Furosemide [Lasix] 40 mg PO DAILY tab 09/17/23 [Rx] HYDROcodone/APAP 5-325MG [[place] 5-325] 1 tab PO Q6HR PRN #18 tab 09/17/23 [Rx] Sennosides/Docusate Sodium [Senna-S 8.6-50 mg Tablet] 2 each PO DAILY PRN #30 tablet 09/17/23 [Rx] Metoprolol Tartrate [Lopressor] 12.5 mg PO BID tab 09/18/23 [Rx] Rivaroxaban [Xarelto] 20 mg PO W/SUPPER tab 09/18/23 [Rx] Follow up Appointment(s)/Referral(s): Jonathan Blanco DO [Doctor of Osteopathic Medicine] - 2 Weeks Linda Ramos MD [Primary Care Provider] - 1-2 days Sahil Glover MD [STAFF PHYSICIAN] - 1 Week Ambulatory/Diagnostic Orders: Basic Metabolic Panel [LAB.AMB] Time Frame: 3 Days, Location: None Selected Complete Blood Count w/diff [LAB.AMB] Location: None Selected Activity/Diet/Wound Care/Special Instructions: Orthopedic discharge instructions: 1. Pain medication as needed 2. Weight-bear as tolerated, utilize walker at all times 3. Okay to shower directly over the incision, basic bandage over dipesh 4. Dipesh can be removed as of 09/27/2023 5. Follow-up with advanced orthopedics in 2 weeks Discharge/Stand Alone Forms: Adult Foster Correction List, Help In The Home Discharge Disposition: TRANSFER TO SNF/ECF
[2023-09-18 11:06] LABS: Glucose,Whole Blood 246 mg/dL (70-110)
[2023-09-18 13:42] VITALS: BP 138/61; PULSE 68; TEMP 97.9
--- NOTE | 2023-09-18 15:02 | P.PN ---
Subjective HISTORY OF PRESENT ILLNESS: This is a 82-year-old male with a past medical history significant for atrial fibrillation, hypertension, hyperlipidemia, diabetes, and coronary artery disease with previous CABG and subsequent stenting. Patient follows in the office with Dr. Smith. We have been asked to see the patient in consultation for surgical clearance. Patient examined at the bedside in the emergency room. Patient presented to the hospital after he sustained a mechanical fall yesterday at home. Patient states he was laying on the ground for approximately 45 minutes to 1 hour before he was able to get up. Patient was found to have a r ight nondisplaced femoral neck fracture. He is scheduled to undergo surgical intervention this afternoon. Patient currently denies any chest pain or pressure. He denies any shortness of breath. Vital signs are stable. DIAGNOSTICS: - EKG reveals atrial fibrillation with PVCs. Bedside telemetry reveals sinus mechanism with PACs. - Chest xray negative for acute process - Laboratory data: WBC 9.6. Hemoglobin 12.0. Platelet count 200. Sodium 143. Potassium 3.6. BUN 49. Creatinine 1.14. Magnesium 2.6. Bilirubin 1.8. AST 227. ALT 74. Creatinine kinase 4314. Troponin 0.800. 0.797. 0.807. - Current home cardiac medications include metoprolol tartrate 12.5 mg 3 times daily, Xarelto 15 mg daily, lisinoprilhydrochlorothiazide 20-25 mg daily, Lasix 40 mg in the morning and 20 mg at night, Lipitor 40 mg daily. - Most recent echocardiogram obtained in the office in February 2022 revealed EF 40%, mild aortic stenosis, mild MR, moderate MS - Cardiac catheterization history: 2013 with stenting of the [place] RCA 09/15/2023 Patient examined this morning in the intensive care unit. Patient currently denies chest pain or pressure. He denies shortness of breath. He is status postsurgical intervention for his hip fracture. He is maintaining sinus mechanism. 2D echo reveals ejection fraction 35 to 40%, moderate pulmonary hypertension, mild to moderate mitral regurgitation, centrally directed mitral regurgitation jet, mild mitral stenosis, mild aortic regurgitation, moderate tricuspid regurgitation 09/16/2023 Patient examined this morning at the bedside. Patient currently denies chest pain or pressure. He denies shortness of breath. He remains in sinus mechanism. Heart rates are on the lower side around 60. Patient apparently got confused overnight and ripped off his dressing. He is awaiting evaluation for discharge to ECF 09/16 Patient seen and examined. Denies any chest pain or pressure. Feeling OK. Afib with CVR. No lightheadedness, 09/17 patient seen and examined. Patient denies any significant pain. Shortness breath stable. Heart rates controlled. He has been on the higher dose of Xarelto however discussed with his kidney function and age she should be on a higher dose. PHYSICAL EXAM: VITAL SIGNS: Reviewed. GENERAL: Well-developed in no acute distress. HEENT: Head is normocephalic. Pupils are equal, round. Sclerae anicteric. Mucous membranes of the mouth are moist. Neck supple. No JVD or thyromegaly LUNGS: Respirations even and unlabored. Lungs essentially clear to auscultation bilaterally. HEART: Regular rate and rhythm. S1 and S2 heard. Systolic murmur noted. ABDOMEN: Soft. Nondistended. Nontender. EXTREMITIES: Normal range of motion. No clubbing or cyanosis. Peripheral pulses intact. Skin is noted to bilateral lower extremities. NEUROLOGIC: Awake and alert. ASSESSMENT: S/p mechanical fall with no evidence of syncope Right nondisplaced femoral neck fracture status post cannulated screw fixation of right hip valgus impacted femoral neck fracture Elevated troponins, flat, acute myocardial injury without ischemia, ACS ruled out Elevated creatinine kinase History of coronary artery disease with previous CABG in 1987 with subsequent stenting, most recently in 2013 Ischemic cardiomyopathy, ejection fraction 40% in 2021 Paroxysmal atrial fibrillation Bilateral lower extremity chronic wounds Hypertension Hyperlipidemia Diabetes PLAN: Continue current cardiac medications Continue with anticoagulation Appears stable for DC to ECF when able. Objective - Vital Signs Vital signs: Vital Signs Temp 97.9 F 09/18/23 13:05 Pulse 68 09/18/23 13:05 Resp 17 09/18/23 13:05 BP 138/61 09/18/23 13:05 Pulse Ox 96 09/18/23 13:05 FiO2 Intake & Output 09/17/23 09/18/23 09/18/23 18:59 06:59 18:59 Intake Total 100 Output Total 750 325 Balance 100 -750 -325 Intake: Oral 100 Output: Urine 750 325 Uretheral (Yeager) 525 Other: Voiding Method Indwelling Catheter Indwelling Catheter Indwelling Catheter # Bowel Movements 2 2 - Labs CBC & Chem 7: 09/17/23 07:47 09/17/23 07:47 Labs: Abnormal Lab Results - Last 24 Hours (Table) 09/17/23 09/17/23 09/18/23 Range/Units 16:16 20:53 06:11 POC Glucose (mg/dL) 276 H 147 H 146 H (70-110) mg/dL 09/18/23 Range/Units 11:05 POC Glucose (mg/dL) 246 H (70-110) mg/dL
--- NOTE | 2023-09-20 13:11 | CDI ---
Documentation Clarification Form Date: 09/20/2023 From: Shalini Patterson Phone: [phone] Admit Date: 09/12/2023 05:09:00 PM Patient Name: Jack Lr Visit Number: [id number] Discharge Date: 09/18/2023 04:17:00 PM ATTENTION: The Clinical Documentation Specialists (CDI) and [facility] Coding Staff appreciate your assistance in clarifying documentation. Please respond to the clarification below the line at the bottom and electronically sign. The CDI & [facility] Coding staff will review the response and follow-up if needed. Please note: Queries are made part of the Legal Health Record. If you have any questions, please contact the author of this message via ITS. Doctor/Provider: Yaron Forte MD: ANASTASIIA is documented in the IM consult 09/12 and in subsequent IM notes which may lack sufficient clinical evidence/support in the medical record. Additional clarification is requested. History/Risk Factors: 82-year-old M with a history of Afib, CAD, HTN, RI who presents after fall and found to have a right femoral neck fracture Clinical Indicators: 09/11 Triage VS: 149/63, 97.1, 130, 12, 98% room air 09/12 IM consult, Assessment and Plan: "Acute renal failure prerenal azotemia secondary to hypovolemia" 09/11-09/14, 09/16 BUN: 43, 49, 34, 31, 26 Creatinine: 1.21, 1.14, 1.01, 1.03, 0.92 EGFR(non-Afr [place]: >60 (all 5 days) Treatment: Monitor creatinine Lasix 40mg oral daily start 09/13 Normal Saline IV 100cc/hour 09/12-09/13 Please clarify if NAASTASIIA is a valid diagnosis? [ ] No, ANASTASIIA is ruled out [ ] Yes, ANASTASIIA is present as evidence by (additional clinical support): [ ] Other (please specify diagnosis) [ ] Unable to determine Reference: KDIGO ANASTASIIA Criteria An increase in serum creatinine by greater than or equal to 0.3 mg/dL within 48 hours; An increase in serum creatinine by greater than or equal to 1.5 times baseline, which is known or presumed to have occurred within the prior 7 days; A urine volume less than 0.5 ml/kg/h for 6 hours. When the baseline is unknown the lowest creatinine during admission assumed to be baseline as per the note MTDD
--- NOTE | 2023-09-21 12:23 | CDI ---
Documentation Clarification Form Date: 09/20/2023 01:45:00 PM From: Lilli Harvey RN, CCDS Phone: [phone] Admit Date: 09/12/2023 05:09:00 PM Patient Name: Jack Lr Visit Number: [id number] Discharge Date: 09/18/2023 04:17:00 PM ATTENTION: The Clinical Documentation Specialists (CDI) and [facility] Coding Staff appreciate your assistance in clarifying documentation. Please respond to the clarification below the line at the bottom and electronically sign. The CDI & [facility] Coding staff will review the response and follow-up if needed. Please note: Queries are made part of the Legal Health Record. If you have any questions, please contact the author of this message via ITS. Dr. Yaron Forte The patient had a fall, sustained a fracture and had an elevated CK level. Please clarify if there is an additional diagnosis. History/Risk Factors: A fib, CAD, HLD, HTN and CA. Brought in by EMS after being found on the ground by a neighbor at his home. Admitted with nondisplaced right femoral neck fracture, s/p cannulated screw fixation of right hip valgus impacted femoral neck fracture. Clinical Indicators: 09/11 CK level: 4314 ED: "He has additional lab abnormalities including anemia, elevated troponin at 0.8 and elevated CK. Patient is given IV fluids." H&P: "Status post unwitnessed fall from standing. Due to trauma protocol patient was admitted under orthopedic service." 09/12 Procedure note: "This is a 82 year old male who sustained a ground level fall and was found to have a right valgus impacted femoral neck fracture and presents today for surgical intervention." Treatment: 0.9 NS @100mL/hr; CK level; PT/OT therapy Please clarify if there is an additional diagnosis: [ ] Traumatic rhabdomyolysis due to fall [ ] Traumatic rhabdomyolysis due to prolonged immobility [ ] Other, please specify ___No Rhabdo [ ] Unable to Determine MTDD
== END 2023-09-18 16:17 | DRG 481 ==
LOC: EC 13:15 → 1SOBS 17:09 → 3SCARD 18:16 → 4SSUR 09-13 09:07 → 2SICU 09-13 18:46 → 3SCARD 09-15 09:21 → 4SSUR 09-17 07:26
PROVIDERS: ADMIT Internal Medicine; ATTEND Internal Medicine
PROC: 0QH636Z Insertion of Intramedullary Internal Fixation Device into Right Upper Femur, Percutaneous Approach (ICD-10-PCS; principal; 2023-09-13 12:40)
DX: S72.041A Displaced fracture of base of neck of right femur, initial encounter for closed fracture (principal); D62 Acute posthemorrhagic anemia; I5A Non-ischemic myocardial injury (non-traumatic); I48.19 Other persistent atrial fibrillation; I50.22 Chronic systolic (congestive) heart failure; N17.9 Acute kidney failure, unspecified; I27.20 Pulmonary hypertension, unspecified; E11.36 Type 2 diabetes mellitus with diabetic cataract; I95.9 Hypotension, unspecified; I11.0 Hypertensive heart disease with heart failure; I08.1 Rheumatic disorders of both mitral and tricuspid valves; E86.1 Hypovolemia; I25.5 Ischemic cardiomyopathy; G47.30 Sleep apnea, unspecified; H26.9 Unspecified cataract; I25.10 Atherosclerotic heart disease of native coronary artery without angina pectoris; I49.3 Ventricular premature depolarization; E78.5 Hyperlipidemia, unspecified; I25.2 Old myocardial infarction; F17.290 Nicotine dependence, other tobacco product, uncomplicated; Z79.84 Long term (current) use of oral hypoglycemic drugs; Z79.01 Long term (current) use of anticoagulants; Z79.899 Other long term (current) drug therapy; Z95.5 Presence of coronary angioplasty implant and graft; Z95.1 Presence of aortocoronary bypass graft; W18.30XA Fall on same level, unspecified, initial encounter; Y92.009 Unspecified place in unspecified non-institutional (private) residence as the place of occurrence of the external cause
CPT/HCPCS: 36415; 70450; 71046; 72125; 72170; 73502; 80048; 80053; 82550; 83735; 84132; 84484; 85025; 85027; 85610; 86850; 86900; 86901; 93005; 93306; 96361; 96365; 96366; 99285